=== PATIENT | male | born 1940 | race Caucasian/White ===

== ENCOUNTER 2019-07-05 18:12 | Emergency (ER) | payer MEDICARE ==
[~2019-07-05] VITALS: Ht 177.8 cm; Wt 79.0 kg
[~2019-07-05 18:12] MED LIST: ASCO100T4 PO; ASPI81TA50 PO; ATEN25TA PO; ATOR10TA PO; LISI10TA2 PO
[2019-07-05 18:33] LABS: BILIRUBIN,URINE NEGATIVE (NEG); CLARITY,URINE CLEAR; COLOR,URINE YELLOW; NITRITE,URINE NEGATIVE (NEG); PH,URINE 5.5 (<5.0-8.0); PROTEIN,URINE NEGATIVE (NEG-TRACE)
[2019-07-05 18:50] LABS: BACTERIA,URINE 0 /HPF (0-FEW); RBC,URINE 0 /HPF (0-2); WBC,URINE RARE /HPF (0-4)
[2019-07-05 19:00] VITALS: BP 164/74
--- NOTE | 2019-07-05 19:32 | RAD ---
CT ABDOMEN PELVIS WO CONTRAST INDICATION: Reason: urinary frequency / Spl. Instructions: / History: EXAM: Noncontrast CT of the abdomen and pelvis. Coronal and sagittal reformatted images were performed. PQRS compliance statement: One or more of the following individualized dose reduction techniques were utilized for this examination: 1. Automated exposure control 2. Adjustment of the mA and/or kV according to patient size 3. Use of iterative reconstruction technique COMPARISON: None FINDINGS: No free air, free fluid, or fluid collection. Lower chest: History of middle lobe calcified granulomas. Cardiomegaly. Coronary artery atherosclerotic disease. ABDOMEN: Liver: Hepatic steatosis. Gallbladder and biliary: Normal gallbladder without radiopaque stone. Normal caliber bile ducts. Spleen: Normal spleen. Pancreas: The noncontrast pancreas is homogeneous in attenuation without peripancreatic inflammatory changes. Adrenal glands: Normal adrenal glands. Kidneys and ureters: No opaque urinary calculi. Normal kidneys and ureters. GI tract: The stomach is decompressed and poorly evaluated. Normal caliber small bowel and colon. Normal appendix. Vascular structures: Diffuse aortoiliac atherosclerotic disease Lymph nodes: No lymphadenopathy in the abdomen or pelvis. PELVIS: Genitourinary system: Normal bladder. Enlarged prostate measures 5 cm transverse. SKELETAL STRUCTURES AND SOFT TISSUES: Degenerative changes of the spine. Partially visualized lesion in the left proximal femoral diaphysis with central lucency and foci of central mineralization and thick sclerotic margins/cortical thickening. No associated soft tissue mass is identified. IMPRESSION: 1. No opaque urinary calculi or hydronephrosis. 2. Prostatomegaly. 3. Partially visualized lesion in the left proximal femoral diaphysis with central lucency and foci of central mineralization and thick sclerotic margins/cortical thickening. No associated soft tissue mass is identified. This may represent a lesion such as a an enchondroma. Comparison with prior imaging would be helpful if available. Otherwise, 6-8 week follow-up radiographs are suggested. Electronically signed by: Jeramie Hendrix MD (07/05/2019 7:29 PM) [id number]
--- NOTE | 2019-07-05 19:49 | PHYS DOC ---
Past Medical History Past Medical History: CAD, High Cholesterol, Hypertension, [place] Past Surgical History: Other Additional Past Surgical Histo: balloon angioplasty Smoking Status: Former Smoker Alcohol Use: Heavy General Adult EDM: Chief Complaint: URINARY FREQUENCY HPI: HPI: Patient is a 79 year old male with history of MT, hypertension, high cholesterol who presents to the ED today complaining of urinary frequency for 4 days. Patient denies any fever, flank pain, nausea, vomiting, abdominal pain. He reports history of sciatica to the left. Review of Systems: Review of Systems: Constitutional: Denies fever or chills. [] Eyes: Denies change in visual acuity. [] HENT: Denies nasal congestion or sore throat. [] Respiratory: Denies cough or shortness of breath. [] Cardiovascular: Denies chest pain or edema. [] GI: Denies abdominal pain, nausea, vomiting, bloody stools or diarrhea. [] : Reports urinary frequency. Musculoskeletal: Denies back pain or joint pain. [] Integument: Denies rash. [] Neurologic: Denies headache, focal weakness or sensory changes. [] Psychiatric: Denies depression or anxiety. [] Heart Score: Risk Factors: Risk Factors: DM, Current or recent (<one month) smoker, HTN, HLP, family history of CAD, obesity. Risk Scores: Score 0 - 3: 2.5% MACE over next 6 weeks - Discharge Home Score 4 - 6: 20.3% MACE over next 6 weeks - Admit for Clinical Observation Score 7 - 10: 72.7% MACE over next 6 weeks - Early Invasive Strategies Allergies: Allergies: Allergies Coded Allergies Type Severity Reaction Last Updated Verified No Known Drug Allergies 06/14/14 No Physical Exam: PE: Constitutional: Well developed, well nourished, no acute distress, non-toxic appearance. [] HENT: Normocephalic, atraumatic, bilateral external ears normal, oropharynx moist, no oral exudates, nose normal. [] Eyes: PERRLA, EOMI, conjunctiva normal, no discharge. [] Neck: Normal range of motion, no tenderness, supple, no stridor. [] Cardiovascular:Heart rate regular rhythm, no murmur [] Lungs & Thorax: Bilateral breath sounds clear to auscultation [] Abdomen: Bowel sounds normal, soft, no tenderness, no masses, no pulsatile masses. [] Skin: Warm, dry, no erythema, no rash. [] Back: No tenderness, no CVA tenderness. [] Extremities: No tenderness, no cyanosis, no clubbing, ROM intact, no edema. [] Neurologic: Alert and oriented X 3, normal motor function, normal sensory function, no focal deficits noted. [] Psychologic: Affect normal, judgement normal, mood normal. [] Current Patient Data: Labs: Laboratory Tests Test 07/05/19 18:20 Urine Collection Type Void Urine Color Yellow Urine Clarity Clear Urine pH 5.5 (<5.0-8.0) Urine Specific [place] 1.015 (1.000-1.030) Urine Protein Negative mg/dL (NEG-TRACE) Urine Glucose (UA) Negative mg/dL (NEG) Urine Ketones (Stick) Negative mg/dL (NEG) Urine Blood Negative (NEG) Urine Nitrite Negative (NEG) Urine Bilirubin Negative (NEG) Urine Urobilinogen Dipstick 1.0 mg/dL (0.2 mg/dL) Urine Leukocyte Esterase Negative (NEG) Urine RBC 0 /HPF (0-2) Urine WBC Rare /HPF (0-4) Urine Squamous Epithelial Cells None /LPF Urine Bacteria 0 /HPF (0-FEW) Urine Mucus Slight /LPF Vital Signs: Vital Signs Date Time Temp Pulse Resp B/P (MAP) Pulse Ox O2 Delivery O2 Flow Rate FiO2 07/05/19 18:18 98.1 70 16 210/91 (130) 96 Room Air 98.1 EKG: EKG: [] Radiology/Procedures: Radiology/Procedures: []PROCEDURE: CT ABDOMEN PELVIS WO CONTRAST CT ABDOMEN PELVIS WO CONTRAST INDICATION: Reason: urinary frequency / Spl. Instructions: / History: EXAM: Noncontrast CT of the abdomen and pelvis. Coronal and sagittal reformatted images were performed. PQRS compliance statement: One or more of the following individualized dose reduction techniques were utilized for this examination: 1. Automated exposure control 2. Adjustment of the mA and/or kV according to patient size 3. Use of iterative reconstruction technique COMPARISON: None FINDINGS: No free air, free fluid, or fluid collection. Lower chest: History of middle lobe calcified granulomas. Cardiomegaly. Coronary artery atherosclerotic disease. ABDOMEN: Liver: Hepatic steatosis. Gallbladder and biliary: Normal gallbladder without radiopaque stone. Normal caliber bile ducts. Spleen: Normal spleen. Pancreas: The noncontrast pancreas is homogeneous in attenuation without peripancreatic inflammatory changes. Adrenal glands: Normal adrenal glands. Kidneys and ureters: No opaque urinary calculi. Normal kidneys and ureters. GI tract: The stomach is decompressed and poorly evaluated. Normal caliber small bowel and colon. Normal appendix. Vascular structures: Diffuse aortoiliac atherosclerotic disease Lymph nodes: No lymphadenopathy in the abdomen or pelvis. PELVIS: Genitourinary system: Normal bladder. Enlarged prostate measures 5 cm transverse. SKELETAL STRUCTURES AND SOFT TISSUES: Degenerative changes of the spine. Partially visualized lesion in the left proximal femoral diaphysis with central lucency and foci of central mineralization and thick sclerotic margins/cortical thickening. No associated soft tissue mass is identified. IMPRESSION: 1. No opaque urinary calculi or hydronephrosis. 2. Prostatomegaly. 3. Partially visualized lesion in the left proximal femoral diaphysis with central lucency and foci of central mineralization and thick sclerotic margins/cortical thickening. No associated soft tissue mass is identified. This may represent a lesion such as a an enchondroma. Comparison with prior imaging would be helpful if available. Otherwise, 6-8 week follow-up radiographs are suggested. Electronically signed by: Marylin Palacios MD (07/05/2019 7:29 PM) [id number] DICTATED and SIGNED BY: MARYLIN PALACIOS MD DATE: 07/05/191928 Course & Med Decision Making: Course & Med Decision Making Pertinent Labs and Imaging studies reviewed. (See chart for details) This is a 79-year-old male patient presenting to the ED today with urinary frequency for 4 days. Urine analysis negative for infection. Discussed with the patient possibility of getting labs to make sure his kidney function is okay. 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 He states his labs were already done 3 weeks ago and they were okay. Requested him to consider doing a CT of the abdomen and pelvic which he agreed to. CT noted for prostatomegaly. Also noted for Enchodroma of the left hip. Patient was started on Flomax, he reports he has MRI that his PCP is planning to order as an outpatient for sciatic pain. Requested him to follow-up with the PCP in the course of this week or next week. Wale Disclaimer: Wale Disclaimer: This electronic medical record was generated, in whole or in part, using a voice recognition dictation system. Departure Departure Impression: Primary Impression: BPH (benign prostatic hyperplasia) Qualified Codes: N40.1 - Benign prostatic hyperplasia with lower urinary tract symptoms; R35.0 - Frequency of micturition Additional Impression: Enchondroma of femur Qualified Codes: D16.22 - Benign neoplasm of long bones of left lower limb Disposition: HOME, SELF-CARE Condition: STABLE Referrals: MAURIZIO CHAPA MD (PCP) follow up in 1-2 weeks Patient Instructions: Benign Prostatic Hyperplasia Additional Instructions: Your CAT scan of the abdomen and pelvis was noted for enlarged prostate. Please follow-up with your primary care doctor for this, take the Flomax prescribed. You were also noted for Enchodroma of the left femur. Please follow up with your doctor for this. Scripts Tamsulosin Hcl (FLOMAX) 0.4 Mg Cap.er.24h 1 CAP PO DAILY, #14 CAP Prov: SASCHA SCOTT APRN 07/05/19 SASCHA SCOTT APRN July 05, 2019 19:49
[2019-07-05] MEDS ORDERED: TAMS0.4C97 PO (19:55)
[2019-07-05] MEDS ORDERED: TAMSULOSIN 0.4 MG CAP.ER.24H. PO ONE (20:00)
== END 2019-07-05 20:01 | disposition home or self-care (01) ==
LOC: ER 18:12
DX: N40.1 Benign prostatic hyperplasia with lower urinary tract symptoms (principal); R35.0 Frequency of micturition; D16.22 Benign neoplasm of long bones of left lower limb; E78.00 Pure hypercholesterolemia, unspecified; I10 Essential (primary) hypertension; I25.2 Old myocardial infarction; I25.10 Atherosclerotic heart disease of native coronary artery without angina pectoris; Z87.891 Personal history of nicotine dependence; F10.20 Alcohol dependence, uncomplicated; Y90.9 Presence of alcohol in blood, level not specified
CPT/HCPCS: 74176; 81001; 99284-25

== ENCOUNTER 2019-11-21 09:09 | Inpatient (IN) | payer MEDICARE ==
[~2019-11-21] VITALS: Ht 177.8 cm; Wt 78.5 kg
[~2019-11-21 09:09] MED LIST changes: +TAMS0.4C97 PO
[2019-11-21] MEDS ORDERED: ONDANSETRON PF 4 MG/2 ML VIAL. IVP ONE (09:30)
[2019-11-21] MEDS ORDERED: MORPHINE SULFATE 4 MG/ML VIAL. IV ONE ×3 (09:30→16:15)
[2019-11-21] MEDS ORDERED: TETANUS AND DIPHTHERIA TOX/PF 0.5 ML DISP.SYRIN. VAX IM ONE (09:30)
--- NOTE | 2019-11-21 09:37 | PHYS DOC ---
Past Medical History Past Medical History: CAD, High Cholesterol, Hypertension, [place] Past Surgical History: Other Additional Past Surgical Histo: balloon angioplasty Smoking Status: Former Smoker Alcohol Use: Heavy General Adult EDM: Chief Complaint: MECHANICAL FALL HPI: HPI: Patient is a 79 year old male who had a mechanical fall and landed on his left side just prior to arrival. Patient has chronic weakness in the left leg and he stumbled on the right landing on his left hip and elbow. Patient also hit his shoulder. Patient did not hit his head or have loss of consciousness. Patient complains primarily of left hip pain that is 10 out of 10 with movement and radiates down the leg when he moves. Pain is a stabbing pain and better with rest. Patient also complains of mild discomfort left elbow and moderate discomfort left shoulder. Review of Systems: Review of Systems: Constitutional: Denies fever or chills. [] Eyes: Denies change in visual acuity. [] HENT: Denies nasal congestion or sore throat. [] Respiratory: Denies cough or shortness of breath. [] Cardiovascular: Denies chest pain or edema. [] GI: Denies abdominal pain, nausea, vomiting, bloody stools or diarrhea. [] : Denies dysuria. [] Musculoskeletal: Denies back pain but has left elbow left shoulder and left hip pain Integument: Denies rash. [] Neurologic: Denies headache, focal weakness or sensory changes. [] Endocrine: Denies polyuria or polydipsia. [] Lymphatic: Denies swollen glands. [] Psychiatric: Denies depression or anxiety. [] Heart Score: Risk Factors: Risk Factors: DM, Current or recent (<one month) smoker, HTN, HLP, family history of CAD, obesity. Risk Scores: Score 0 - 3: 2.5% MACE over next 6 weeks - Discharge Home Score 4 - 6: 20.3% MACE over next 6 weeks - Admit for Clinical Observation Score 7 - 10: 72.7% MACE over next 6 weeks - Early Invasive Strategies Current Medications: Current Medications Medications (Trade) Dose Ordered Sig/Mindy Start Time Stop Time Status Last Admin Dose Admin Morphine Sulfate (Morphine Sulfate) 4 mg 1X ONCE 11/21/19 09:30 11/21/19 09:31 DC Ondansetron HCl (Zofran) 4 mg 1X ONCE 11/21/19 09:30 11/21/19 09:31 DC Tetanus/ Diphtheria Toxoids (Tenivac Syringe) 0.5 ml ONCE ONCE 11/21/19 09:30 11/21/19 09:31 DC Allergies: Allergies: Allergies Coded Allergies Type Severity Reaction Last Updated Verified No Known Drug Allergies 06/14/14 No Physical Exam: PE: Constitutional: Well developed, well nourished, no acute distress, non-toxic appearance. [] HENT: Normocephalic, atraumatic, bilateral external ears normal, no trismus, nose normal. [] Eyes: PERRLA, EOMI, conjunctiva normal, no discharge. [] Neck: Normal range of motion, no tenderness, supple, no stridor. [] Cardiovascular:Heart rate regular rhythm, peripheral pulses are intact cap refill is brisk Lungs & Thorax: Bilateral breath sounds clear, no respiratory distress Abdomen: , soft, no tenderness, no masses, no pulsatile masses. [] Skin: Warm, dry, no erythema, no rash. [] Skin tear to left elbow Back: No tenderness, no CVA tenderness. [] Extremities: Tenderness to left hip and into the groin limited range of motion due to pain neurovascular intact distally mild tenderness left elbow, neurovascular intact distally, tenderness to left shoulder, neurovascular intact distally Neurologic: Alert and oriented X 3, normal motor function, normal sensory function, no focal deficits noted. [] Psychologic: Affect normal, judgement normal, mood normal. [] Current Patient Data: Labs: Laboratory Tests Test 11/21/19 09:30 White Blood Count 4.3 x10^3/uL Red Blood Count 4.65 x10^6/uL Hemoglobin 14.7 g/dL Hematocrit 43.3 % Mean Corpuscular Volume 93 fL Mean Corpuscular Hemoglobin 32 pg Mean Corpuscular Hemoglobin Concent 34 g/dL Red Cell Distribution Width 13.4 % Platelet Count 158 x10^3/uL Neutrophils (%) (Auto) 68 % Lymphocytes (%) (Auto) 21 % Monocytes (%) (Auto) 9 % Eosinophils (%) (Auto) 1 % Basophils (%) (Auto) 1 % Neutrophils # (Auto) 3.0 x10^3/uL Lymphocytes # (Auto) 0.9 x10^3/uL Monocytes # (Auto) 0.4 x10^3/uL Eosinophils # (Auto) 0.0 x10^3/uL Basophils # (Auto) 0.0 x10^3/uL Prothrombin Time 13.6 SEC Prothromb Time International Ratio 1.1 Activated Partial Thromboplast Time 26 SEC Sodium Level 139 mmol/L Potassium Level 3.9 mmol/L Chloride Level 104 mmol/L Carbon Dioxide Level 28 mmol/L Anion Gap 7 Blood Urea Nitrogen 9 mg/dL Creatinine 0.9 mg/dL Estimated GFR (Cockcroft-Gault) 81.6 BUN/Creatinine Ratio 10 Glucose Level 136 mg/dL Calcium Level 8.8 mg/dL Total Bilirubin 1.3 mg/dL Aspartate Amino Transf (AST/SGOT) 32 U/L Alanine Aminotransferase (ALT/SGPT) 36 U/L Alkaline Phosphatase 58 U/L Total Protein 6.3 g/dL Albumin 3.7 g/dL Albumin/Globulin Ratio 1.4 Current Medications Medications (Trade) Dose Ordered Sig/Mindy Route PRN Reason Start Time Stop Time Status Last Admin Dose Admin Tetanus/ Diphtheria Toxoids (Tenivac Syringe) 0.5 ml ONCE ONCE VAX IM 11/21/19 09:30 11/21/19 09:31 DC Ondansetron HCl (Zofran) 4 mg 1X ONCE IVP 11/21/19 09:30 11/21/19 09:31 DC 11/21/19 09:43 Morphine Sulfate (Morphine Sulfate) 4 mg 1X ONCE IV 11/21/19 09:30 11/21/19 09:31 DC 11/21/19 09:43 Vital Signs: Vital Signs Date Time Temp Pulse Resp B/P (MAP) Pulse Ox O2 Delivery O2 Flow Rate FiO2 11/21/19 09:43 Room Air 11/21/19 09:10 97.8 78 14 98 97.8 EKG: EKG: [] EKG interpreted by me normal sinus rhythm with rate of 79 normal axis normal intervals normal ST segments, PVCs Radiology/Procedures: Radiology/Procedures: [][facility] [address] [place] [address] IMAGING REPORT Signed PATIENT: RADHA LAMBERT CACCOUNT: [id number] : 1940 LOCATION: ER AGE: 79 SEX: M EXAM STATUS: REG ER ORD. PHYSICIAN: MICKIE ORELLANA MD REASON: fall left leg pain PROCEDURE: HIP LEFT 2V WITH PELVIS Examination: 2 views of the left hip with frontal view the pelvis HISTORY: History of fall, left leg pain COMPARISON: None available FINDINGS: The bilateral femoral heads are within the acetabula. Moderate joint space loss identified in the hip joint likely degenerative changes. There is nondisplaced fracture of the left femoral neck. There is a sclerotic density identified in the proximal femur just distal to the intertrochanteric region measuring 5.1 cm could be a sclerotic lesion. IMPRESSION: 1. Nondisplaced fracture of the left femoral neck. 2. There is a sclerotic density identified in the proximal femur just distal to the intertrochanteric region measuring 5.1 cm could be a sclerotic lesion. Uncertain etiology. Could be enchondroma posterior osteoma or other sclerotic lesion. Recommend MRI follow-up. Electronically signed by: Vipul Johnson MD (11/21/2019 10:21 AM) [id number] DICTATED and SIGNED BY: VIUPL JOHNSON MD DATE: 11/21/[address] [place] [address] [address] [place], [place] [id number] IMAGING REPORT Signed PATIENT: RADHA LAMBERTCOUNT: [id number] : 1940 LOCATION: ER AGE: 79 SEX: M EXAM STATUS: REG ER ORD. PHYSICIAN: MICKIE ORELLANA MD REASON: fall left leg pain PROCEDURE: ELBOW LEFT 3V Examination: 3 views of the left shoulder and 3 views of the left elbow HISTORY: History of fall, pain COMPARISON: None available FINDINGS: The humerus head is within the glenoid. There is no acute fracture or dislocation identified. Mild joint space loss identified in the glenohumeral joint likely degenerative changes. The evaluation of the elbow joint for joint effusion is limited due to positioning. IMPRESSION: No acute osseous findings. Electronically signed by: Vipul Johnson MD (11/21/2019 10:28 AM) [id number] DICTATED and SIGNED BY: VIPUL JOHNSON MD DATE: 11/21/19 [id number] [place] [address] IMAGING REPORT Signed PATIENT: RADHA LAMBERTUNT: [id number] : 1940 LOCATION: ER AGE: 79 SEX: M EXAM STATUS: REG ER ORD. PHYSICIAN: MICKIE ORELLANA MD REASON: fall left leg pain PROCEDURE: PORTABLE CHEST 1V AP chest. HISTORY: Fall left leg pain AP view was taken of the chest. There is no pneumothorax or pleural effusion. Lungs are clear. Heart is normal in size. IMPRESSION: 1. No acute chest disease. Electronically signed by: Mina Mayorga MD (11/21/2019 10:36 AM) [id number] DICTATED and SIGNED BY: MINA MAYORGA MD DATE: 11/21/[address] [address] IMAGING REPORT Signed PATIENT: RADHA LAMBERTCOUNT: [id number] : 1940 LOCATION: ER AGE: 79 SEX: M EXAM STATUS: REG ER ORD. PHYSICIAN: MICKIE ORELLANA MD REASON: fall left leg pain PROCEDURE: SHOULDER 2+V LEFT Examination: 3 views of the left shoulder and 3 views of the left elbow HISTORY: History of fall, pain COMPARISON: None available FINDINGS: The humerus head is within the glenoid. There is no acute fracture or dislocation identified. Mild joint space loss identified in the glenohumeral joint likely degenerative changes. The evaluation of the elbow joint for joint effusion is limited due to positioning. IMPRESSION: No acute osseous findings. Electronically signed by: Vipul Johnson MD (11/21/2019 10:28 AM) [id number] DICTATED and SIGNED BY: VIPUL JOHNSON MD DATE: 11/21/19 1028 Course & Med Decision Making: Course & Med Decision Making Pertinent Labs and Imaging studies reviewed. (See chart for details) [] 79-year-old male with a mechanical fall and left hip fracture. Patient will be admitted to Dr. Chapa. Dr. Penn has been consulted Wale Disclaimer: Wale Disclaimer: This electronic medical record was generated, in whole or in part, using a voice recognition dictation system. Departure Departure Impression: Primary Impression: Fracture of femoral neck, left Additional Impression: Contusion of left shoulder Disposition: ADMITTED INPT THIS HOSP Admitting Physician: Maurizio Chapa Condition: STABLE Referrals: MAURIZIO CHAPA MD (PCP) MICKIE ORELLANA MD Nov 21, 2019 09:37
[2019-11-21 09:57] LABS: BASO % 1 % (0-3); EOS % 1 % (0-3); HEMATOCRIT 43.3 % (39.0-53.0); HEMOGLOBIN 14.7 g/dL (13.0-17.5); LYMPH # 0.9 x10^3/uL (1.0-4.8); LYMPH % 21 % (24-48); MEAN CORPUSCULAR HEMOGLOBIN 32 pg (25-35); MEAN CORPUSCULAR HGB CONC 34 g/dL (31-37); MEAN CORPUSCULAR VOLUME 93 fL (79-100); MONO # 0.4 x10^3/uL (0.0-1.1); MONO % 9 % (0-9); NEUT % 68 % (31-73); PLATELET COUNT 158 x10^3/uL (140-400); RED BLOOD COUNT 4.65 x10^6/uL (4.30-5.70); RED CELL DISTRIBUTION WIDTH 13.4 % (11.5-14.5); WHITE BLOOD COUNT 4.3 x10^3/uL (4.0-11.0)
[2019-11-21 10:06] LABS: PROTHROMBIN TIME PATIENT 13.6 SEC (11.7-14.0)
[2019-11-21 10:10] LABS: CALCIUM 8.8 mg/dL (8.5-10.1); CREATININE 0.9 mg/dL (0.7-1.3); GFR 81.6; POTASSIUM 3.9 mmol/L (3.5-5.1)
[2019-11-21 10:16] LABS: ALBUMIN 3.7 g/dL (3.4-5.0); ALBUMIN/GLOBULIN RATIO 1.4 (1.0-1.7); TOTAL BILIRUBIN 1.3 mg/dL (0.2-1.0); TOTAL PROTEIN 6.3 g/dL (6.4-8.2)
--- NOTE | 2019-11-21 10:24 | RAD ---
Examination: 2 views of the left hip with frontal view the pelvis HISTORY: History of fall, left leg pain COMPARISON: None available FINDINGS: The bilateral femoral heads are within the acetabula. Moderate joint space loss identified in the hip joint likely degenerative changes. There is nondisplaced fracture of the left femoral neck. There is a sclerotic density identified in the proximal femur just distal to the intertrochanteric region measuring 5.1 cm could be a sclerotic lesion. IMPRESSION: 1. Nondisplaced fracture of the left femoral neck. 2. There is a sclerotic density identified in the proximal femur just distal to the intertrochanteric region measuring 5.1 cm could be a sclerotic lesion. Uncertain etiology. Could be enchondroma posterior osteoma or other sclerotic lesion. Recommend MRI follow-up. Electronically signed by: Vipul Johnson MD (11/21/2019 10:21 AM) [id number]
--- NOTE | 2019-11-21 10:31 | RAD ---
Examination: 3 views of the left shoulder and 3 views of the left elbow HISTORY: History of fall, pain COMPARISON: None available FINDINGS: The humerus head is within the glenoid. There is no acute fracture or dislocation identified. Mild joint space loss identified in the glenohumeral joint likely degenerative changes. The evaluation of the elbow joint for joint effusion is limited due to positioning. IMPRESSION: No acute osseous findings. Electronically signed by: Vipul Johnson MD (11/21/2019 10:28 AM) [id number]
--- NOTE | 2019-11-21 10:39 | RAD ---
AP chest. HISTORY: Fall left leg pain AP view was taken of the chest. There is no pneumothorax or pleural effusion. Lungs are clear. Heart is normal in size. IMPRESSION: 1. No acute chest disease. Electronically signed by: Mina Mayorga MD (11/21/2019 10:36 AM) [id number]
[2019-11-21] MEDS ORDERED: ONDANSETRON PF 4 MG/2 ML VIAL. IV PRN (11:30)
[2019-11-21 14:30] VITALS: BP 150/59
--- NOTE | 2019-11-21 15:28 | EKG ---
[facility] [address] [place] [address] Test Date: 2019-11-21 Test Time: 09:33:34 Pat Name: RADHA LAMBERT Department: Room: Gender: M [employer]: : 1940 Requested By: MICKIE ORELLANA Order Number: [id number] Reading MD: Measurements Intervals [place] Rate: 79 P: 44 AL: 172 QRS: 38 QRSD: 102 T: 68 QT: 368 QTc: 428 Interpretive Statements SINUS RHYTHM VENTRICULAR PREMATURE COMPLEX(ES) ABNORMAL ECG RI6.02 No previous ECG available for comparison
[2019-11-21] MEDS ORDERED: MORPHINE SULFATE 4 MG/ML VIAL. ONE (16:10)
--- NOTE | 2019-11-21 18:09 | PDOC2 ---
CONSULT Date of Consult Date of Consult DATE: 11/21/19 TIME: 18:08 Reason for Consult Reason for Consult: Left hip fracture, and also a lesion in the left proximal femur. I am not engineering documentation specialist but it's a friend of my family and the patient and his family requested me personally. 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 Patient has history of weakness in the left leg and he stumbled on the right landing on his left hip and elbow. Patient also hit his shoulder. Patient did not hit his head or have loss of consciousness. Patient complains primarily of left hip pain that is 10 out of 10 with movement and radiates down the leg when he moves. Pain is a stabbing pain and better with rest. Patient also complains of mild discomfort left elbow and moderate discomfort left shoulder. He has been having trouble with left leg weakness for about 9 months. 9 months ago he fell off a barstool at [employer] and according to the patient at that time he landed so hard on his butt that he injured his sciatic nerve. He does have some low back pain and does have a history of right-sided lumbar surgery for sciatica. This left leg weakness has been treated for sciatic nerve injury outside of the lumbar spine. I am suspicious it is actually in the spine. In any case he had an MRI that which does show a lesion in the left femur. He also had an EMG of the lower extremity with Dr. Hollis. His primary care physician is Dr. Joiner. Past Medical History Past Medical History He had a heart attack when he was in his 40s. He had balloon angioplasty but no stent. Has been on antihypertensive medication since then. No cardiac surgery. Dr. Joiner is his PCP. He had lumbar spine surgery remotely, for right-sided sciatica. Does have some mild chronic low back pain. He has had 9 months of left leg weakness and occasionally the leg gives out and he has fallen several times. He had a cyst on his abdomen drained and packed by Dr. Joiner recently, which sounds like an skin abscess. Past Surgical History Past Surgical History Lumbar spine surgery. Broken bones. Social History Social History He lives with his and their dog. He does not use a cane or walker. He enjoys playing golf. His son Stephan Camp and [id number] [place] Camp and their kids attend alevism at [employer] where my family attends. Mr. Lambert is familiar with my in-laws the Hill family in [facility]. Quit ALCOHOL: other Lives: with Family Current Problem List Problem List Problems Medical Problems: (1) Contusion of left shoulder Status: Acute (2) Fracture of femoral neck, left Status: Acute Current Medications Current Medications Current Medications Tetanus/ Diphtheria Toxoids (Tenivac Syringe) 0.5 ml ONCE ONCE VAX IM ; Start 11/21/19 at 09:30; Stop 11/21/19 at 09:31; Status DC Ondansetron HCl (Zofran) 4 mg 1X ONCE IVP Last administered on 11/21/19at 09:43; Start 11/21/19 at 09:30; Stop 11/21/19 at 09:31; Status DC Morphine Sulfate (Morphine Sulfate) 4 mg 1X ONCE IV Last administered on 11/21/19at 09:43; Start 11/21/19 at 09:30; Stop 11/21/19 at 09:31; Status DC Ondansetron HCl (Zofran) 4 mg PRN Q8HRS PRN IV NAUSEA/VOMITING; Start 11/21/19 at 11:30; Stop 11/22/19 at 11:29 Morphine Sulfate (Morphine Sulfate) 4 mg 1X ONCE IV Last administered on 11/21/19at 11:59; Start 11/21/19 at 12:00; Stop 11/21/19 at 12:01; Status DC Morphine Sulfate (Morphine Sulfate) 4 mg 1X ONCE IV Last administered on 11/21/19at 16:15; Start 11/21/19 at 16:15; Stop 11/21/19 at 16:16; Status DC Morphine Sulfate (Morphine Sulfate) 4 mg STK-MED ONCE .ROUTE ; Start 11/21/19 at 16:10; Stop 11/21/19 at 16:11; Status DC Morphine Sulfate (Morphine Sulfate) 4 mg PRN Q3HRS PRN IV PAIN; Start 11/21/19 at 17:45 Active Scripts Active Flomax (Tamsulosin Hcl) 0.4 Mg Cap.er.24h 1 Cap PO DAILY Reported Vitamin C (Ascorbic Acid) 100 Mg Tablet 100 Mg PO Aspir-Low (Aspirin) 81 Mg Tablet. 1 Tab PO DAILY Lipitor (Atorvastatin Calcium) 10 Mg Tablet Unknown Dose PO HS Lisinopril 10 Mg Tablet Unknown Dose PO DAILY Atenolol 25 Mg Tablet Unknown Dose PO DAILY Allergies Allergies: Coded Allergies: No Known Drug Allergies (Unverified , 06/14/14) ROS General: No: Chills, Night Sweats Eyes: No Decreased vision Hematological and Lymphatic: No: Bleeding Problems, Blood Clots Respiratory: No: Cough, Shortness of breath, SOB with excertion Cardiovascular: No Chest Pain Gastrointestinal: No Nausea, No Vomiting, No Diarrhea, No Constipation Genitourinary: No Hematuria Musculoskeletal: Yes Gait Disturbance, Yes Joint Pain, Yes Muscular Weakness Neurological: Yes Gait Disturbance, Yes Impaired Coord/balance Physical Exam General: Alert, Cooperative HEENT: Atraumatic Lungs: Normal air movement Heart: Regular rate Abdomen: Soft Extremities: Other (There is tenderness of the left hip. There is pain with any attempted motion. The skin is intact without ecchymosis. The extremity is shortened and externally rotated. Light touch sensation is intact at the foot and toes. Capillary refill and pulses are intact without evidence of ischemia. Slight dorsiflexion and plantarflexion are possible without distinct evidence of sciatic nerve injury despite the report of weakness. Slight left leg weakness would be nearly impossible to detect in the setting of a left hip fracture.) Skin: No rashes, No breakdown, Other (healed abdominal cyst wound) Neuro: Normal speech, Sensation intact Psych/Mental Status: Mental status NL, Mood NL MUSCULOSKELETAL: Abnormal exam of left (hip as above) Vitals VITALS Vital Signs Date Time Temp Pulse Resp B/P (MAP) Pulse Ox O2 Delivery O2 Flow Rate FiO2 11/21/19 16:15 95 Room Air 11/21/19 16:10 86 17 11/21/19 14:30 98.1 150/59 (89) 98.1 Labs Labs Laboratory Tests Test 11/21/19 09:30 11/21/19 10:45 White Blood Count 4.3 x10^3/uL (4.0-11.0) Red Blood Count 4.65 x10^6/uL (4.30-5.70) Hemoglobin 14.7 g/dL (13.0-17.5) Hematocrit 43.3 % (39.0-53.0) Mean Corpuscular Volume 93 fL (79-100) Mean Corpuscular Hemoglobin 32 pg (25-35) Mean Corpuscular Hemoglobin Concent 34 g/dL (31-37) Red Cell Distribution Width 13.4 % (11.5-14.5) Platelet Count 158 x10^3/uL (140-400) Neutrophils (%) (Auto) 68 % (31-73) Lymphocytes (%) (Auto) 21 % (24-48) Monocytes (%) (Auto) 9 % (0-9) Eosinophils (%) (Auto) 1 % (0-3) Basophils (%) (Auto) 1 % (0-3) Neutrophils # (Auto) 3.0 x10^3/uL (1.8-7.7) Lymphocytes # (Auto) 0.9 x10^3/uL (1.0-4.8) Monocytes # (Auto) 0.4 x10^3/uL (0.0-1.1) Eosinophils # (Auto) 0.0 x10^3/uL (0.0-0.7) Basophils # (Auto) 0.0 x10^3/uL (0.0-0.2) Prothrombin Time 13.6 SEC (11.7-14.0) Prothromb Time International Ratio 1.1 (0.8-1.1) Activated Partial Thromboplast Time 26 SEC (24-38) Sodium Level 139 mmol/L (136-145) Potassium Level 3.9 mmol/L (3.5-5.1) Chloride Level 104 mmol/L (98-107) Carbon Dioxide Level 28 mmol/L (21-32) Anion Gap 7 (6-14) Blood Urea Nitrogen 9 mg/dL (8-26) Creatinine 0.9 mg/dL (0.7-1.3) Estimated GFR (Cockcroft-Gault) 81.6 BUN/Creatinine Ratio 10 (6-20) Glucose Level 136 mg/dL (70-99) Calcium Level 8.8 mg/dL (8.5-10.1) Total Bilirubin 1.3 mg/dL (0.2-1.0) Aspartate Amino Transf (AST/SGOT) 32 U/L (15-37) Alanine Aminotransferase (ALT/SGPT) 36 U/L (16-63) Alkaline Phosphatase 58 U/L (46-116) Total Protein 6.3 g/dL (6.4-8.2) Albumin 3.7 g/dL (3.4-5.0) Albumin/Globulin Ratio 1.4 (1.0-1.7) SARS-CoV-2 Antigen (Rapid) Negative (NEGATIVE) Laboratory Tests Test 11/21/19 09:30 11/21/19 10:45 White Blood Count 4.3 x10^3/uL (4.0-11.0) Red Blood Count 4.65 x10^6/uL (4.30-5.70) Hemoglobin 14.7 g/dL (13.0-17.5) Hematocrit 43.3 % (39.0-53.0) Mean Corpuscular Volume 93 fL (79-100) Mean Corpuscular Hemoglobin 32 pg (25-35) Mean Corpuscular Hemoglobin Concent 34 g/dL (31-37) Red Cell Distribution Width 13.4 % (11.5-14.5) Platelet Count 158 x10^3/uL (140-400) Neutrophils (%) (Auto) 68 % (31-73) Lymphocytes (%) (Auto) 21 % (24-48) Monocytes (%) (Auto) 9 % (0-9) Eosinophils (%) (Auto) 1 % (0-3) Basophils (%) (Auto) 1 % (0-3) Neutrophils # (Auto) 3.0 x10^3/uL (1.8-7.7) Lymphocytes # (Auto) 0.9 x10^3/uL (1.0-4.8) Monocytes # (Auto) 0.4 x10^3/uL (0.0-1.1) Eosinophils # (Auto) 0.0 x10^3/uL (0.0-0.7) Basophils # (Auto) 0.0 x10^3/uL (0.0-0.2) Prothrombin Time 13.6 SEC (11.7-14.0) Prothromb Time International Ratio 1.1 (0.8-1.1) Activated Partial Thromboplast Time 26 SEC (24-38) Sodium Level 139 mmol/L (136-145) Potassium Level 3.9 mmol/L (3.5-5.1) Chloride Level 104 mmol/L (98-107) Carbon Dioxide Level 28 mmol/L (21-32) Anion Gap 7 (6-14) Blood Urea Nitrogen 9 mg/dL (8-26) Creatinine 0.9 mg/dL (0.7-1.3) Estimated GFR (Cockcroft-Gault) 81.6 BUN/Creatinine Ratio 10 (6-20) Glucose Level 136 mg/dL (70-99) Calcium Level 8.8 mg/dL (8.5-10.1) Total Bilirubin 1.3 mg/dL (0.2-1.0) Aspartate Amino Transf (AST/SGOT) 32 U/L (15-37) Alanine Aminotransferase (ALT/SGPT) 36 U/L (16-63) Alkaline Phosphatase 58 U/L (46-116) Total Protein 6.3 g/dL (6.4-8.2) Albumin 3.7 g/dL (3.4-5.0) Albumin/Globulin Ratio 1.4 (1.0-1.7) SARS-CoV-2 Antigen (Rapid) Negative (NEGATIVE) Images Images Report reviewed and images independently reviewed. There is a left hip femoral neck fracture which is complete and translated a few millimeters at the medial neck, so it is a displaced fracture. There is also a neoplasm of some type in the left proximal femur. This is a common area for metastatic disease but there is no history of malignancy. I think the lesion could be benign as there does not seem to be any dramatic bone loss. MRI would be helpful for characterization before surgery because surgery will likely involve this location, such as reaming for a hemiarthroplasty. The patient already had an MRI, and I reviewed that report and those images. [facility] [address] [place] [address] IMAGING REPORT Signed PATIENT: RADHA LAMBERT ACCOUNT: [id number] : 1940 LOCATION: ER AGE: 79 SEX: M EXAM STATUS: REG ER ORD. PHYSICIAN: MICKIE ORELLANA MD REASON: fall left leg pain PROCEDURE: HIP LEFT 2V WITH PELVIS Examination: 2 views of the left hip with frontal view the pelvis HISTORY: History of fall, left leg pain COMPARISON: None available FINDINGS: The bilateral femoral heads are within the acetabula. Moderate joint space loss identified in the hip joint likely degenerative changes. There is nondisplaced fracture of the left femoral neck. There is a sclerotic density identified in the proximal femur just distal to the intertrochanteric region measuring 5.1 cm could be a sclerotic lesion. IMPRESSION: 1. Nondisplaced fracture of the left femoral neck. 2. There is a sclerotic density identified in the proximal femur just distal to the intertrochanteric region measuring 5.1 cm could be a sclerotic lesion. Uncertain etiology. Could be enchondroma posterior osteoma or other sclerotic lesion. Recommend MRI follow-up. Electronically signed by: Vipul Johnson MD (11/21/2019 10:21 AM) [id number] DICTATED and SIGNED BY: VIPUL JOHNSON MD DATE: 11/21/19 1021 Report reviewed and images independently reviewed of the MRI. This does appear benign. Some of the characteristics look like an enchondroma but there is more sclerosis. 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 Referring Physician: JESI ETIENNE Patient Name: RADHA LAMBERT Date of : 1940 Sex: Male Report Author: ABRAHAM DOWNS MD Report Date: 2019-11-13 Report Status: Finalized Findings VENICE HAWK DATE: 11/13/2019 09:00 AM [address] [place] [address] [facility] LOCATION: [facility] NAME: RADHA LAMBERT : 1940 ACC: [id number] MRI LEFT FEMUR WITHOUT AND WITH CONTRAST: TECHNIQUE: 0.3T MR: Multiplanar/multisequence pre/post contrast femur protocol. CONTRAST: 7.5 cc of Gadavist was administered intravenously, 0 cc of the contrast vial was discarded. INDICATION: Left hip and leg pain for 8 months. Follow-up lesion seen on x-ray. COMPARISON: Left hip radiographs 10/27/2019 FINDINGS: OSSEOUS/ARTICULAR: No subtrochanteric left femur, there is a heterogeneous intramedullary lesion measuring 3.3 x 2.7 x 4.6 cm. There is no endosteal scalloping. The lesion has areas of marked low signal intensity, some fat signal intensity and some probable proteinaceous fluid intensity. No adjacent edema. No osseous destructive changes. Patchy low-grade enhancement. SOFT TISSUES: Regional muscles and tendons are unremarkable. IMPRESSION: Heterogeneous lesion in the subtrochanteric left femur with areas of fat, sclerosis and probable proteinaceous fluid. 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 Consider consult with orthopedic surgery. 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 Lambert and I and the patient's son discussed the risks benefits and alternatives of a cemented bipolar arthroplasty. 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 We discussed the unlikely chance that a more aggressive tumor could be diagnosed based on the biopsy. The advantages of surgery are early range of motion and better pain control. Generally the patient can be up fully weightbearing as tolerated on the first postoperative day. The risks include risks of dislocation, infection, blood clots, leg length discrepancy, neurovascular injury particularly to the sciatic nerve causing a foot drop, and other potential surgical or anesthetic complications. The alternatives of surgery are bedrest for treatment which is generally not well tolerated due to the high risks of bedsores, pneumonia, blood clots, and frequently with nonoperative treatment for hip fractures. They stated understanding of the risks benefits and alternatives and desire to proceed with surgery. Surgery scheduled for 7:30 AM. STEPHAN CIFUENTES MD Nov 21, 2019 18:09
[2019-11-21] MEDS ORDERED: INFLUENZA VAX SCREEN BY RX. MC ONE (18:45)
[2019-11-21 19:00] VITALS: BP 129/59
[2019-11-21] MEDS ORDERED: oxyCODONE/APAP 5/325 1 TAB TABLET PO PRN ×2 (20:00→20:30)
[2019-11-21] MEDS ORDERED: ZOLPIDEM 5 MG TABLET. PO PRN (20:00)
[2019-11-21] MEDS ORDERED: 0.9 % SODIUM CHLORIDE 10 ML DISP.SYRIN. IV PRN (20:00)
[2019-11-21] MEDS ORDERED: DEXTROSE 50% 25 GM / 50ML DISP.SYRIN. IV PRN (20:00)
[2019-11-21] MEDS ORDERED: ONDANSETRON PF 4 MG/2 ML VIAL. IVP PRN (20:00)
[2019-11-21 22:17] LABS: BASO % 0 % (0-3); EOS % 0 % (0-3); HEMATOCRIT 41.2 % (39.0-53.0); HEMOGLOBIN 14.1 g/dL (13.0-17.5); LYMPH # 0.8 x10^3/uL (1.0-4.8); LYMPH % 10 % (24-48); MEAN CORPUSCULAR HEMOGLOBIN 32 pg (25-35); MEAN CORPUSCULAR HGB CONC 34 g/dL (31-37); MEAN CORPUSCULAR VOLUME 93 fL (79-100); MONO # 0.8 x10^3/uL (0.0-1.1); MONO % 11 % (0-9); NEUT # 5.8 x10^3/uL (1.8-7.7); NEUT % 78 % (31-73); PLATELET COUNT 145 x10^3/uL (140-400); RED BLOOD COUNT 4.41 x10^6/uL (4.30-5.70); RED CELL DISTRIBUTION WIDTH 13.6 % (11.5-14.5); WHITE BLOOD COUNT 7.4 x10^3/uL (4.0-11.0)
[2019-11-21 22:24] LABS: PROTHROMBIN TIME PATIENT 14.8 SEC (11.7-14.0)
[2019-11-21 22:26] LABS: CALCIUM 8.3 mg/dL (8.5-10.1); GFR 72.3; POTASSIUM 4.1 mmol/L (3.5-5.1)
[2019-11-21 23:00] VITALS: BP 117/60
[2019-11-22] VITALS (9 sets, daily range): BP systolic 81–125; BP diastolic 41–67
[2019-11-22] MEDS: MORPHINE SULFATE 4 MG/ML VIAL. IV PRN ×2 (01:36→06:18)
[2019-11-22] MEDS ORDERED: [UNRECOGNIZED DRUG - REMARK] INT ART ONE (06:00)
[2019-11-22] MEDS ORDERED: PROPOFOL 10 MG/ML (20ML) VIAL. IV ONE (06:37)
[2019-11-22] MEDS ORDERED: LIDOCAINE 2% PF 5 ML VIAL. ONE (06:37)
[2019-11-22] MEDS ORDERED: ONDANSETRON PF 4 MG/2 ML VIAL. ONE (06:38)
[2019-11-22] MEDS ORDERED: DEXAMETHASONE SOD PHOS 4 MG/ML VIAL ONE (06:38)
[2019-11-22] MEDS ORDERED: ROCURONIUM 50 MG/5 ML VIAL. ONE (06:40)
[2019-11-22] MEDS ORDERED: fentaNYL PF VIAL 100 MCG/2 ML VIAL IV PRN (07:00)
[2019-11-22] MEDS ORDERED: PROCHLORPERAZINE 10 MG/2 ML VIAL. IV PRN (07:00)
[2019-11-22] MEDS ORDERED: MORPHINE SULFATE 2 MG/ML VIAL. IV PRN (07:00)
[2019-11-22] MEDS ORDERED: ONDANSETRON PF 4 MG/2 ML VIAL. IV PRN (07:00)
[2019-11-22] MEDS ORDERED: HYDROmorphone 2 MG/ML VIAL IV PRN (07:00)
[2019-11-22] MEDS ORDERED: LIDOCAINE 1% PF 2 ML VIAL. ID PRN (07:00)
[2019-11-22] MEDS ORDERED: IV RINGERS,LACTATED 1000ML 1,000 ML IV SCH (07:00)
[2019-11-22] MEDS ORDERED: fentaNYL PF VIAL 100 MCG/2 ML VIAL ONE ×3 (07:14→10:38)
[2019-11-22] MEDS ORDERED: TOBRAMYCIN POWDER 1.2 GM VIAL. ONE (07:19)
[2019-11-22] MEDS ORDERED: VANCOMYCIN 1 GM VIAL. ONE ×2 (07:19)
[2019-11-22] MEDS ORDERED: TRANEXAMIC ACID 1,000 MG in IV NORMAL SALINE 50ML 50 ML INJ ONE (08:00)
[2019-11-22] MEDS ORDERED: PHENYLEPHRINE in 0.9% NACL PF 1 MG/10 ML SYRINGE. IV ONE (08:11)
[2019-11-22] MEDS ORDERED: NEOSTIGMINE METHYLSULFATE 5 MG/5 ML SYRINGE. ONE (08:22)
[2019-11-22] MEDS ORDERED: GLYCOPYRROLATE 1 MG/5 ML VIAL. ONE (08:23)
[2019-11-22] MEDS ORDERED: ERGOCALCIFEROL (VITAMIN D2) 50,000 UNIT CAPSULE. PO SCH (09:00)
--- NOTE | 2019-11-22 09:33 | HP ---
ADMIT DATE: 11/21/2019 CHIEF COMPLAINT: Fall. HISTORY OF PRESENT ILLNESS: This is a 79-year-old healthy white male who had a fall and has a femoral neck fracture and is in surgery at this time. He has had no other recent problems except for some weakness in the left leg, which has been evaluated, no definitive diagnosis has been made. PAST HISTORY: Listed per the chart. MEDICATIONS: Listed per the chart. ALLERGIES: No allergies. IMMUNIZATIONS: Up-to-date. SOCIAL HISTORY: Nonsmoker, physically active, . FAMILY HISTORY: Unremarkable. REVIEW OF SYSTEMS: No other complaints. OBJECTIVE: ENT: Unremarkable. NECK: No masses, nodes, or bruits. LUNGS: Clear. CARDIOVASCULAR: Regular rate. No murmur. EXTREMITIES: Left leg is shortened and externally rotated. Good pulses. NEUROLOGIC: Physiologic. ASSESSMENT: Femoral neck fracture after a fall. PLAN: As ordered. MAURIZIO CHAPA MD DR: BILL/jaycee JOB#: [id number] / [id number]
[2019-11-22] MEDS ORDERED: ePHEDrine PF IN SALINE 50 MG/10 ML SYRINGE. IV ONE (09:58)
[2019-11-22] MEDS: fentaNYL PF VIAL 100 MCG/2 ML VIAL IV PRN ×2 (10:42→11:02)
[2019-11-22] MEDS ORDERED: DEXTROSE 50% 25 GM / 50ML DISP.SYRIN. IV PRN (11:45)
[2019-11-22] MEDS ORDERED: ONDANSETRON PF 4 MG/2 ML VIAL. IVP PRN (11:45)
[2019-11-22] MEDS ORDERED: oxyCODONE/APAP 5/325 1 TAB TABLET PO PRN (11:45)
[2019-11-22] MEDS ORDERED: oxyCODONE IR 5 MG TABLET PO PRN (11:45)
[2019-11-22] MEDS ORDERED: MORPHINE SULFATE 4 MG/ML VIAL. IVP PRN (11:45)
[2019-11-22] MEDS ORDERED: POLYETHYLENE GLYCOL 3350 17 GM PACKET. PO PRN (11:45)
[2019-11-22] MEDS ORDERED: fentaNYL PF VIAL 100 MCG/2 ML VIAL IVP PRN (11:45)
[2019-11-22] MEDS: LISINOPRIL 10 MG TABLET PO SCH (12:29)
[2019-11-22] MEDS: ATENOLOL 25 MG TABLET. PO SCH (12:29)
[2019-11-22] MEDS: TAMSULOSIN 0.4 MG CAP.ER.24H. PO SCH (12:29)
[2019-11-22] MEDS: oxyCODONE/APAP 5/325 1 TAB TABLET PO PRN (17:56)
[2019-11-22] MEDS ORDERED: FLU VACC QS 2020-21(6MOS+)/PF 0.5 ML SYRINGE. VAX IM ONE (18:00)
[2019-11-22] MEDS: ATORVASTATIN CALCIUM 10 MG TABLET. PO SCH (21:14)
[2019-11-22] MEDS: IV 1/2 NORMAL SALINE 1,000 ML IV SCH (22:54)
[2019-11-23 00:08] LABS: HEMOGLOBIN A1C 5.4 % (4.8-5.6)
[2019-11-23 00:38] VITALS: BP 99/50
[2019-11-23] MEDS: MORPHINE SULFATE 2 MG/ML VIAL. IVP PRN ×4 (01:11→17:44)
[2019-11-23] MEDS: IV 1/2 NORMAL SALINE 1,000 ML IV SCH ×2 (01:20→17:10)
--- NOTE | 2019-11-23 01:52 | NUR ---
bladder scanned 170ml
[2019-11-23 03:00] VITALS: BP 91/47
[2019-11-23] MEDS ORDERED: [UNRECOGNIZED DRUG - REMARK] INT ART ONE (06:00)
[2019-11-23] MEDS ORDERED: EPINEPHRINE IRR ONE (06:00)
[2019-11-23] MEDS ORDERED: NORMAL SALINE IRR ONE (06:00)
[2019-11-23] MEDS ORDERED: MAGNESIUM HYDROXIDE 2,400 MG/30 ML ORAL.SUSP. PO PRN (06:00)
[2019-11-23] MEDS ORDERED: MORPHINE SULFATE 2 MG/ML VIAL. IVP PRN ×2 (06:30→16:15)
[2019-11-23] MEDS ORDERED: HYDROmorphone 2 MG/ML VIAL IVP PRN (06:30)
[2019-11-23] MEDS ORDERED: fentaNYL PF VIAL 100 MCG/2 ML VIAL IVP PRN ×2 (06:30→16:15)
[2019-11-23] MEDS ORDERED: ONDANSETRON PF 4 MG/2 ML VIAL. IVP PRN ×2 (06:30→16:15)
[2019-11-23] MEDS ORDERED: PROCHLORPERAZINE 10 MG/2 ML VIAL. IVP PRN (06:30)
[2019-11-23] MEDS ORDERED: IV RINGERS,LACTATED 1000ML 1,000 ML IV SCH ×2 (06:30→07:00)
[2019-11-23] MEDS ORDERED: LIDOCAINE 1% PF 2 ML VIAL. ID PRN ×2 (06:30→07:00)
[2019-11-23 07:00] VITALS: BP 94/43
[2019-11-23] MEDS ORDERED: PROCHLORPERAZINE 10 MG/2 ML VIAL. IV PRN (07:00)
[2019-11-23] MEDS ORDERED: MORPHINE SULFATE 2 MG/ML VIAL. IV PRN (07:00)
[2019-11-23] MEDS ORDERED: ONDANSETRON PF 4 MG/2 ML VIAL. IV PRN (07:00)
[2019-11-23] MEDS ORDERED: fentaNYL PF VIAL 100 MCG/2 ML VIAL IV PRN ×2 (07:00)
[2019-11-23] MEDS ORDERED: HYDROmorphone 2 MG/ML VIAL IV PRN (07:00)
[2019-11-23] MEDS: SENNOSIDES/DOCUSATE 8.6/50MG TABLET. PO SCH ×2 (07:21→09:00)
[2019-11-23] MEDS: ATENOLOL 25 MG TABLET. PO SCH (07:21)
[2019-11-23] MEDS: TAMSULOSIN 0.4 MG CAP.ER.24H. PO SCH ×2 (07:21→09:00)
[2019-11-23] MEDS: LISINOPRIL 10 MG TABLET PO SCH (07:21)
[2019-11-23] MEDS: MULTIVITAMIN with MINERAL TABLET. PO SCH ×2 (07:22→09:00)
--- NOTE | 2019-11-23 08:24 | PDOC ---
Provider Note Date of Service: DATE: 11/23/19 TIME: 08:23 Provider Note labs all good but low D level, 50 K weekly added, will follow post op Justifications for Admission Other Justification MAURIZIO CHAPA MD Nov 23, 2019 08:24
[2019-11-23] MEDS ORDERED: NEOSTIGMINE METHYLSULFATE 5 MG/5 ML SYRINGE. ONE (08:36)
[2019-11-23] MEDS ORDERED: ROCURONIUM 50 MG/5 ML VIAL. ONE ×2 (08:36→14:18)
[2019-11-23] MEDS ORDERED: fentaNYL PF VIAL 100 MCG/2 ML VIAL ONE ×3 (08:36→16:11)
[2019-11-23] MEDS ORDERED: PROPOFOL 10 MG/ML (20ML) VIAL. IV ONE (08:37)
[2019-11-23] MEDS ORDERED: LIDOCAINE 2% PF 5 ML VIAL. ONE (08:37)
[2019-11-23] MEDS ORDERED: DEXAMETHASONE SOD PHOS 4 MG/ML VIAL ONE (08:37)
[2019-11-23] MEDS ORDERED: ONDANSETRON PF 4 MG/2 ML VIAL. ONE (08:37)
[2019-11-23] MEDS ORDERED: VANCOMYCIN 1 GM VIAL. ONE ×2 (10:16→10:17)
[2019-11-23] MEDS ORDERED: TOBRAMYCIN POWDER 1.2 GM VIAL. ONE (10:17)
[2019-11-23] MEDS ORDERED: BUPIVACAINE MPF 0.25% 30 ML VIAL. ONE (12:12)
[2019-11-23] MEDS ORDERED: methylPREDNISolone ACETATE 40 MG/ML VIAL. ONE (12:12)
[2019-11-23] MEDS ORDERED: TRANEXAMIC ACID 1,000 MG in IV NORMAL SALINE 50ML 50 ML INJ ONE (12:30)
[2019-11-23] MEDS ORDERED: ePHEDrine PF IN SALINE 50 MG/10 ML SYRINGE. IV ONE (13:47)
[2019-11-23] MEDS ORDERED: PHENYLEPHRINE in 0.9% NACL PF 1 MG/10 ML SYRINGE. IV ONE (13:47)
[2019-11-23] MEDS ORDERED: PHENYLEPHRINE 10 MG/ML VIAL. ONE (14:18)
[2019-11-23] MEDS ORDERED: SEVOFLURANE 61 TO 120 MINUTES. IH ONE (14:24)
[2019-11-23] MEDS ORDERED: ceFAZolin SODIUM IV Push 1 GM VIAL. IVP ONE (14:24)
[2019-11-23] MEDS ORDERED: ALBUMIN HUMAN 5% 500 ML IV ONE ×2 (15:51→15:55)
[2019-11-23] MEDS ORDERED: BISACODYL 10 MG SUPP.RECT. PR PRN (16:00)
[2019-11-23] MEDS ORDERED: IV 1/2 NORMAL SALINE 1,000 ML IV SCH (16:12)
--- NOTE | 2019-11-23 16:12 | PDOC4 ---
Operative Note Operative Note Date of Procedure: November 23, 2019 Pre-Op Diagnosis: 1. Displaced mid cervical fracture of left femur, initial encounter for closed fracture S72.032A 2. Pain in left shoulder M25.512 Post-Op Diagnosis: same Procedure: 1. left hip open treatment of femoral fracture, proximal end, neck, prosthetic replacement, with allograft CPT 41937 2. left shoulder joint corticosteroid injection CPT 69227 Anesthesia Type: General Surgeon: Stephan Lewis MD Shoe Repairer Helper: BRENDAN Howard, MIL Ambrocio EBL: 500 mL Specimens Obtained: none Complications: None Drains: None Implants: Sams [employer] Nephew Redapt femoral standard offset size sixteen 300 mm length sleeved stem revision femoral component Sams [employer]hew Redapt femoral size 1617 modular sleeve extra small grit blasted [employer] Nephew tandem 28 mm inner diameter 52 mm outer diameter cobalt chrome shell/ultrahigh molecular weight polyethylene liner bipolar Sams [employer] Nephew cobalt chrome 28 mm outer diameter, -3 mm, 12/14 taper femoral head cobalt chrome Arthrex TigerTape cerclage suture 2 mm (x6 devices) [facility] cortical/cancellous strut. INDICATION FOR PROCEDURE: This patient is a 79-year-old man with a displaced left hip femoral neck fracture. 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 I had plan to complete the surgery yesterday with both excision of the tumor and placement of the bipolar arthroplasty, however the tumor was more difficult to remove than I had anticipated, and long revision stem components will be needed for this patient's fracture. The specialized implants and equipment needed to be ordered in, and was unavailable yesterday. Staged surgeries were done, with tumor removal yeste rday, and I will perform the arthroplasty today. The patient and I previously and again discussed risks of bipolar arthroplasty including limb length discrepancy, dislocation, neurovascular injury particularly the sciatic nerve, bleeding, blood clots, infection, need for additional surgeries, or other potential surgical or anesthetic complications. All of his questions about surg sherrell were answered and he desires to proceed. PROCEDURE IN DETAIL: The patient was identified in the preoperative holding area. The correct left hip was marked by me. The patient was taken to the operating room where a general anesthetic was used. Preoperative antibiotics were given intravenously. The patient was positioned laterally using a Stulberg hip positioner and the bony prominences of the nonoperative leg were well padded. A time-out procedure was performed. The left shoulder was prepared with chlorhexidine, and then under sterile technique I injected 40 mg of Depo-Medrol and 2 mL of 0.25% bupivacaine into the left shoulder joint bursa. All of the operating team wore the personal ventilated exhaust scrub suits. The left hip and limb were thoroughly washed with ChloraPrep solution, dried, and the shauna were removed. The skin was then prepared with Betadine solution using sterile technique. Sterile draping was performed, using a sterile Ioban hip drape and an impervious stockinette such that the skin was entirely covered. A posterior approach to the left hip was used. Sharp dissection was used. Prior sutures were removed. Bovie electrocautery was used for hemostasis. Gelpi retractors were placed. Sharp dissection was used and the fascia was exposed. The fascia sutures were removed and then a Charnley retractor was placed. The Charnley retractor was placed in a manner to protect the sciatic nerve with the short external rotators. The acetabulum was cleared of bony fragments. The previous traction sutures were removed, and were used as markers, and new #2 Ethibond traction sutures were placed. Betadine lavage was used throughout the hip and femur, including down the intramedullary canal. Cerclage devices were placed at the femur below the level of the bone loss and fracture, onto an intact area of the femoral cortex. I placed two of the Arthrex TigerTape cerclage devices, to help protect the femoral cortex during reaming and bone preparation. These tension to 60 N with a tensioner, and sutures tied to complete the cerclage security. Next intramedullary reaming was performed. 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 This tumor is the most dense I have ever encountered in 25 years of orthopedic surgery, it is like a rock. It is so dense that even the normal intramedullary reamer was being pushed away from the tumor and could not excise or remove the tumor. The reamer was being forcibly diverted into a varus alignment, and I needed to resect more of the tumor before I could ream the intramedullary canal properly. I used an arthroscopic bur, and direct visualization, and I excised the remaining tumor which was along the lateral intramedullary cortex. Once I had completely excised the remaining dense tumor, I could proceed with the reaming in the usual fashion and without difficulty. The cortex distally was protected by the cerclage devices. An intraoperative x-ray was used to confirm placement in the intramedullary canal. The x-ray was taken with a [address], and after I visualized the x-ray I reamed an additional 2 mm up to 16 mm. The x-ray was interpreted intraoperatively by me. The 16mm reamer was left in place, and the proximal reaming was performed with a cannulated reamer over the first reamer shaft. This will allow placement of a modular grit-blasted sleeve, to improve the healing of the bone graft at this upper area where there is medial bone loss. A standard offset neck was chosen, and the 52 mm unipolar device was used for the trial reduction. The hip was reduced by my technical administrative assistant Mr. Zhao while I held traction on the Ethibond sutures. The hip reduction was nice and stable, but fairly tight with a 0 mm head, and I chose the -3 head neck combination for anatomic tension and length. The trial components were removed. Outer gloves were changed. Antibiotics were redosed. Betadine lavage was used again. Copious irrigation was performed with saline, and the Del InterPulse truck repair supervisor. The final implants were opened. The more superior of the cerclage devices had slipped into the previous fracture defect, and had been cut by the reaming. I replaced that cerclage device with an additional cerclage device. The grit blasted sleeve was placed over the final stem, and then the entire device was now tamped into place, with care made to restore the normal anteversion based on the remaining femoral neck anatomy. This was tamped with mallet blows slowly and firmly, with excellent security, quite a tight fit, but able to slowly be advanced until the shoulder of the implant matches the top of the greater trochanter and is anatomically positioned. Next I placed 3 additional Arthrex TigerTape cerclage devices around the upper portion of the implant at the area of the grit-blasted sleeve and bone defect, but did not cinch them yet. I then used the corticocancellous strut, which I fashioned into 2 pieces using an osteotome, and placed these along the medial calcar filling the bone defect. I then cinched the cerclage devices and tightened them to 80 N, securing the bone graft firmly against the sleeve. I then tied additional throws to secure the cerclage devices. The final bipolar head was secured to the Zaragoza taper with a mallet blows and an impactor. The hip was reduced a final time with my technical administrative assistant applying longitudinal traction and rotation, while I guided the head into the acetabulum. A final check was made of limb length and stability in multiple positions. Copious irrigation was used. A periarticular injection was used. No drains were used. The capsule was closed with #2 Ethibond suture. One gram of powdered Vancomycin was used during the closure. The fascia was closed with #2 Vicryl suture. Next, #2-0 Vicryl suture was used in the subcutaneous tissues by my technical administrative assistant, and shauna were placed in the skin by my technical administrative assistant. Acticoat and a HAKEEM single use negative pressure dressing were used. The patient was then transferred carefully back to a hospital bed. An abduction pillow was used. The patient tolerated the procedure well. Needle and sponge counts were correct. There were no apparent complications. STEPHAN LEWIS MD Nov 23, 2019 16:12
[2019-11-23] MEDS: fentaNYL PF VIAL 100 MCG/2 ML VIAL IVP PRN ×2 (16:13→16:44)
[2019-11-23] MEDS ORDERED: DEXTROSE 50% 25 GM / 50ML DISP.SYRIN. IV PRN (16:15)
[2019-11-23] MEDS ORDERED: oxyCODONE/APAP 5/325 1 TAB TABLET PO PRN (16:15)
[2019-11-23] MEDS ORDERED: MORPHINE SULFATE 4 MG/ML VIAL. IVP PRN (16:15)
[2019-11-23] MEDS ORDERED: POLYETHYLENE GLYCOL 3350 17 GM PACKET. PO PRN (16:15)
--- NOTE | 2019-11-23 16:36 | RAD ---
Single view left hip INDICATION: Evaluation of hip hardware in operating room COMPARISON: Left hip x-rays of 11/22/2019 FINDINGS: Single crosstable AP view of the left hip in the operating room shows an intramedullary florinda through the proximal femur replacing the previous fixation pin in the proximal left femur. There is an open surgical wound overlying the left hip. IMPRESSION: Intramedullary florinda in apparent satisfactory position in the proximal left femur on AP crosstable view of the left hip Electronically signed by: Nicci Reyes MD (11/23/2019 4:33 PM) [id number]
[2019-11-23] MEDS: FERROUS SULFATE 325 MG TABLET. PO SCH (16:45)
--- NOTE | 2019-11-23 16:51 | RAD ---
Examination: HIP LEFT 2V WITH PELVIS History: Reason: postop -- include entire prosthesis / Spl. Instructions: / History: Comparison/Correlation: None Findings: Frontal view and crosstable lateral views of the left hip were obtained. Frontal view of the lower pelvis and proximal femora obtained. Total left hip joint arthroplasty is intact. No loosening evident. Cortical defects are primarily seen along the medial aspect of the proximal femoral level. Soft tissue gas corresponds with history noted. Skin shauna evident. Right hip joint is unremarkable. Impression: Postoperative findings along the left total hip joint arthroplasty. Electronically signed by: Moisés Penn MD (11/23/2019 4:48 PM) [facility]
[2019-11-23 16:54] LABS: HEMATOCRIT 21.1 % (39.0-53.0); HEMOGLOBIN 7.3 g/dL (13.0-17.5); RED BLOOD COUNT 2.22 x10^6/uL (4.30-5.70); RED CELL DISTRIBUTION WIDTH 13.5 % (11.5-14.5); WHITE BLOOD COUNT 7.8 x10^3/uL (4.0-11.0)
[2019-11-23 19:15] VITALS: BP 91/41
[2019-11-23] MEDS: ATORVASTATIN CALCIUM 10 MG TABLET. PO SCH (22:09)
[2019-11-23] MEDS: ASPIRIN ENTERIC COATED 325 MG TABLET.DR. PO SCH (22:10)
--- NOTE | 2019-11-23 23:00 | NUR ---
Patient only able to urinate 25cc of urine x3. Patient c/o of discomfort and is very restless. Bladder scan done. >500 cc. Patient straight catheterized and received 1000cc of yellow clear urine. Patient tolerated procedure well. Will continue to monitor.
[2019-11-23 23:27] VITALS: BP 115/44
[2019-11-24] VITALS (10 sets, daily range): BP systolic 101–131; BP diastolic 42–81
[2019-11-24] MEDS ORDERED: MAGNESIUM HYDROXIDE 2,400 MG/30 ML ORAL.SUSP. PO PRN (06:00)
[2019-11-24] MEDS: LISINOPRIL 10 MG TABLET PO SCH (07:48)
[2019-11-24] MEDS: ATENOLOL 25 MG TABLET. PO SCH (07:58)
[2019-11-24 08:11] LABS: BASO % 0 % (0-3); EOS % 0 % (0-3); LYMPH # 0.4 x10^3/uL (1.0-4.8); LYMPH % 6 % (24-48); MEAN CORPUSCULAR HEMOGLOBIN 33 pg (25-35); MEAN CORPUSCULAR HGB CONC 36 g/dL (31-37); MEAN CORPUSCULAR VOLUME 93 fL (79-100); MONO # 1.4 x10^3/uL (0.0-1.1); MONO % 19 % (0-9); NEUT # 5.5 x10^3/uL (1.8-7.7); NEUT % 76 % (31-73); PLATELET COUNT 127 x10^3/uL (140-400); RED BLOOD COUNT 2.02 x10^6/uL (4.30-5.70); RED CELL DISTRIBUTION WIDTH 13.4 % (11.5-14.5); WHITE BLOOD COUNT 7.3 x10^3/uL (4.0-11.0)
[2019-11-24] MEDS: SENNOSIDES/DOCUSATE 8.6/50MG TABLET. PO SCH (08:12)
[2019-11-24] MEDS: MULTIVITAMIN with MINERAL TABLET. PO SCH (08:12)
[2019-11-24] MEDS: FERROUS SULFATE 325 MG TABLET. PO SCH ×2 (08:12→15:11)
[2019-11-24] MEDS: ASPIRIN ENTERIC COATED 325 MG TABLET.DR. PO SCH ×2 (08:12→21:43)
[2019-11-24] MEDS: oxyCODONE/APAP 5/325 1 TAB TABLET PO PRN ×2 (08:12→15:11)
[2019-11-24] MEDS: TAMSULOSIN 0.4 MG CAP.ER.24H. PO SCH (08:12)
[2019-11-24] MEDS: IV 1/2 NORMAL SALINE 1,000 ML IV SCH ×2 (08:13→15:08)
[2019-11-24 08:24] LABS: ALBUMIN 2.4 g/dL (3.4-5.0); CALCIUM 7.2 mg/dL (8.5-10.1); CREATININE 1.1 mg/dL (0.7-1.3); GFR 64.7; POTASSIUM 4.4 mmol/L (3.5-5.1); TOTAL BILIRUBIN 0.6 mg/dL (0.2-1.0); TOTAL PROTEIN 4.9 g/dL (6.4-8.2)
--- NOTE | 2019-11-24 08:26 | PDOC ---
Provider Note Date of Service: DATE: 11/24/19 TIME: 08:24 Provider Note feels ok but weak, hb 7.5 11/22, today pending- was 14- may need prbc, will see Justifications for Admission Other Justification MAURIZIO CHAPA MD Nov 24, 2019 08:26
[2019-11-24 08:27] LABS: HEMATOCRIT 18.8 % (39.0-53.0); HEMOGLOBIN 6.7 g/dL (13.0-17.5)
[2019-11-24 08:36] LABS: PROTHROMBIN TIME PATIENT 16.3 SEC (11.7-14.0)
[2019-11-24] MEDS ORDERED: SENNOSIDES/DOCUSATE 8.6/50MG TABLET. PO SCH (09:00)
[2019-11-24 09:53] LABS: % BANDS 6 % (0-9); % LYMPHS 8 % (24-48); % MONOS 14 % (0-10); % SEGS 72 % (35-66)
[2019-11-24 09:54] LABS: PLT ESTIMATE DECREASED (ADEQUATE)
[2019-11-24 14:21] LABS: HEMATOCRIT 23.6 % (39.0-53.0); HEMOGLOBIN 8.1 g/dL (13.0-17.5)
--- NOTE | 2019-11-24 15:20 | PDOC ---
PROGRESS NOTES Date of Service DATE: 11/24/19 TIME: 15:15 Subjective Subjective Received 1 unit of packed cells due to acute blood loss anemia. Seems a little confused but feels okay. Objective Vital Signs Vital Signs Date Time Temp Pulse Resp B/P (MAP) Pulse Ox O2 Delivery O2 Flow Rate FiO2 11/24/19 12:42 99.0 121 16 116/51 99.0 11/24/19 11:00 92 Room Air 11/24/19 07:24 2.0 Physical Exam He looks a little confused but is conversing well and has no focal findings. Able to dorsiflex and plantarflex the foot without difficulty, no evidence of neurovascular injury. Leg length, rotation and alignment seem anatomic. Sensation intact distally and good capillary refill. Labs Laboratory Tests Test 11/23/19 16:40 11/24/19 06:45 11/24/19 14:14 White Blood Count 7.8 x10^3/uL (4.0-11.0) 7.3 x10^3/uL (4.0-11.0) Red Blood Count 2.22 x10^6/uL (4.30-5.70) 2.02 x10^6/uL (4.30-5.70) Hemoglobin 7.3 g/dL (13.0-17.5) 6.7 g/dL (13.0-17.5) 8.1 g/dL (13.0-17.5) Hematocrit 21.1 % (39.0-53.0) 18.8 % (39.0-53.0) 23.6 % (39.0-53.0) Mean Corpuscular Volume 95 fL (79-100) 93 fL (79-100) Mean Corpuscular Hemoglobin 33 pg (25-35) 33 pg (25-35) Mean Corpuscular Hemoglobin Concent 34 g/dL (31-37) 36 g/dL (31-37) 34 g/dL (31-37) Red Cell Distribution Width 13.5 % (11.5-14.5) 13.4 % (11.5-14.5) Platelet Count 109 x10^3/uL (140-400) 127 x10^3/uL (140-400) Neutrophils (%) (Auto) 76 % (31-73) Lymphocytes (%) (Auto) 6 % (24-48) Monocytes (%) (Auto) 19 % (0-9) Eosinophils (%) (Auto) 0 % (0-3) Basophils (%) (Auto) 0 % (0-3) Neutrophils # (Auto) 5.5 x10^3/uL (1.8-7.7) Lymphocytes # (Auto) 0.4 x10^3/uL (1.0-4.8) Monocytes # (Auto) 1.4 x10^3/uL (0.0-1.1) Eosinophils # (Auto) 0.0 x10^3/uL (0.0-0.7) Basophils # (Auto) 0.0 x10^3/uL (0.0-0.2) Segmented Neutrophils % 72 % (35-66) Band Neutrophils % 6 % (0-9) Lymphocytes % 8 % (24-48) Monocytes % 14 % (0-10) Platelet Estimate Decreased (ADEQUATE) Prothrombin Time 16.3 SEC (11.7-14.0) Prothromb Time International Ratio 1.4 (0.8-1.1) Sodium Level 134 mmol/L (136-145) Potassium Level 4.4 mmol/L (3.5-5.1) Chloride Level 100 mmol/L (98-107) Carbon Dioxide Level 27 mmol/L (21-32) Anion Gap 7 (6-14) Blood Urea Nitrogen 23 mg/dL (8-26) Creatinine 1.1 mg/dL (0.7-1.3) Estimated GFR (Cockcroft-Gault) 64.7 BUN/Creatinine Ratio 21 (6-20) Glucose Level 148 mg/dL (70-99) Calcium Level 7.2 mg/dL (8.5-10.1) Magnesium Level 1.8 mg/dL (1.8-2.4) Total Bilirubin 0.6 mg/dL (0.2-1.0) Aspartate Amino Transf (AST/SGOT) 52 U/L (15-37) Alanine Aminotransferase (ALT/SGPT) 16 U/L (16-63) Alkaline Phosphatase 31 U/L (46-116) Total Protein 4.9 g/dL (6.4-8.2) Albumin 2.4 g/dL (3.4-5.0) Albumin/Globulin Ratio 1.0 (1.0-1.7) Laboratory Tests Test 11/23/19 16:40 11/24/19 06:45 11/24/19 14:14 White Blood Count 7.8 x10^3/uL (4.0-11.0) 7.3 x10^3/uL (4.0-11.0) Red Blood Count 2.22 x10^6/uL (4.30-5.70) 2.02 x10^6/uL (4.30-5.70) Hemoglobin 7.3 g/dL (13.0-17.5) 6.7 g/dL (13.0-17.5) 8.1 g/dL (13.0-17.5) Hematocrit 21.1 % (39.0-53.0) 18.8 % (39.0-53.0) 23.6 % (39.0-53.0) Mean Corpuscular Volume 95 fL (79-100) 93 fL (79-100) Mean Corpuscular Hemoglobin 33 pg (25-35) 33 pg (25-35) Mean Corpuscular Hemoglobin Concent 34 g/dL (31-37) 36 g/dL (31-37) 34 g/dL (31-37) Red Cell Distribution Width 13.5 % (11.5-14.5) 13.4 % (11.5-14.5) Platelet Count 109 x10^3/uL (140-400) 127 x10^3/uL (140-400) Neutrophils (%) (Auto) 76 % (31-73) Lymphocytes (%) (Auto) 6 % (24-48) Monocytes (%) (Auto) 19 % (0-9) Eosinophils (%) (Auto) 0 % (0-3) Basophils (%) (Auto) 0 % (0-3) Neutrophils # (Auto) 5.5 x10^3/uL (1.8-7.7) Lymphocytes # (Auto) 0.4 x10^3/uL (1.0-4.8) Monocytes # (Auto) 1.4 x10^3/uL (0.0-1.1) Eosinophils # (Auto) 0.0 x10^3/uL (0.0-0.7) Basophils # (Auto) 0.0 x10^3/uL (0.0-0.2) Segmented Neutrophils % 72 % (35-66) Band Neutrophils % 6 % (0-9) Lymphocytes % 8 % (24-48) Monocytes % 14 % (0-10) Platelet Estimate Decreased (ADEQUATE) Prothrombin Time 16.3 SEC (11.7-14.0) Prothromb Time International Ratio 1.4 (0.8-1.1) Sodium Level 134 mmol/L (136-145) Potassium Level 4.4 mmol/L (3.5-5.1) Chloride Level 100 mmol/L (98-107) Carbon Dioxide Level 27 mmol/L (21-32) Anion Gap 7 (6-14) Blood Urea Nitrogen 23 mg/dL (8-26) Creatinine 1.1 mg/dL (0.7-1.3) Estimated GFR (Cockcroft-Gault) 64.7 BUN/Creatinine Ratio 21 (6-20) Glucose Level 148 mg/dL (70-99) Calcium Level 7.2 mg/dL (8.5-10.1) Magnesium Level 1.8 mg/dL (1.8-2.4) Total Bilirubin 0.6 mg/dL (0.2-1.0) Aspartate Amino Transf (AST/SGOT) 52 U/L (15-37) Alanine Aminotransferase (ALT/SGPT) 16 U/L (16-63) Alkaline Phosphatase 31 U/L (46-116) Total Protein 4.9 g/dL (6.4-8.2) Albumin 2.4 g/dL (3.4-5.0) Albumin/Globulin Ratio 1.0 (1.0-1.7) Imaging Report reviewed, images independently reviewed. Satisfactory appearance of the revision type component. The medial proximal femur area is areas of bone graft and possibly some elements of the [place] bone which are fractured. The medial bone graft is held in place with cerclage devices which are nonmetallic and so not visualized radiographically. [facility] [address] [place] [address] IMAGING REPORT Signed PATIENT: RADHA LAMBERT ACCOUNT: [id number] : 1940 LOCATION: [address] [place] [address] AGE: 79 SEX: M EXAM STATUS: ADM IN ORD. PHYSICIAN: STEPHAN CIFUENTES MD REASON: postop -- include entire prosthesis PROCEDURE: HIP LEFT 2V WITH PELVIS Examination: HIP LEFT 2V WITH PELVIS History: Reason: postop -- include entire prosthesis / Spl. Instructions: / History: Comparison/Correlation: None Findings: Frontal view and crosstable lateral views of the left hip were obtained. Frontal view of the lower pelvis and proximal femora obtained. Total left hip joint arthroplasty is intact. No loosening evident. Cortical defects are primarily seen along the medial aspect of the proximal femoral level. Soft tissue gas corresponds with history noted. Skin shauna evident. Right hip joint is unremarkable. Impression: Postoperative findings along the left total hip joint arthroplasty. Electronically signed by: Moisés Darling MD (11/23/2019 4:48 PM) [facility] DICTATED and SIGNED BY: MOISÉS DARLING MD DATE: 11/23/19 1648 Assessment Assessment POD#1 after left hip uncemented hemiarthroplasty with allograft for femoral neck fracture and associated fracture from bone tumor removal. Plan Plan of Care Continue IV fluids at 75/h. He is still dehydrated according to the BUN and creatinine. He did have postoperative anemia and it improved with the tra nsfusion. Recheck labs in the morning. He is not ready for discharge by any means. He tried to get out of bed without nursing help and I reinforced to him that he always needs to ask for help. The confusion is probably understandable considering the blood loss, dehydration from blood loss, prolonged surgery, and his age. 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 Justicifation of Admission Dx: Justifications for Admission: Justification of Admission Dx: Yes Fracture: Fracture STEPHAN CIFUENTES MD Nov 24, 2019 15:20
[2019-11-24] MEDS ORDERED: BISACODYL 10 MG SUPP.RECT. PR PRN (16:00)
[2019-11-24] MEDS: ATORVASTATIN CALCIUM 10 MG TABLET. PO SCH (21:43)
[2019-11-25 03:42] VITALS: BP 143/63
[2019-11-25] MEDS: IV 1/2 NORMAL SALINE 1,000 ML IV SCH ×2 (06:40→20:00)
[2019-11-25 07:00] VITALS: BP 146/63
[2019-11-25] MEDS: SENNOSIDES/DOCUSATE 8.6/50MG TABLET. PO SCH (08:24)
[2019-11-25] MEDS: TAMSULOSIN 0.4 MG CAP.ER.24H. PO SCH (08:24)
[2019-11-25] MEDS: FERROUS SULFATE 325 MG TABLET. PO SCH ×2 (08:24→15:26)
[2019-11-25] MEDS: ASPIRIN ENTERIC COATED 325 MG TABLET.DR. PO SCH ×2 (08:24→21:16)
[2019-11-25] MEDS: LISINOPRIL 10 MG TABLET PO SCH (08:24)
[2019-11-25] MEDS: MULTIVITAMIN with MINERAL TABLET. PO SCH (08:25)
[2019-11-25] MEDS: ATENOLOL 25 MG TABLET. PO SCH (08:25)
--- NOTE | 2019-11-25 09:37 | PDOC ---
DATE OF SERVICE: DATE: 11/25/19 TIME: 09:36 GENERAL General: vss and afebrile. awake and alert and appears comfortable. chest clear, heart regular, abdomen benign. clinical course reviewed. Hb up to 8.1 following transfusion and will recheck in am. otherwise same. VITAL SIGNS/I&O Vital Signs/I&O: Vital Signs Date Time Temp Pulse Resp B/P (MAP) Pulse Ox O2 Delivery O2 Flow Rate FiO2 11/25/19 08:25 100 146/63 11/25/19 08:00 Room Air 11/25/19 07:00 99.0 18 94 99.0 11/24/19 19:40 2.0 I & O 11/24/19 11/24/19 11/25/19 15:00 23:00 07:00 Intake Total 815 ml 480 ml 1005 ml Output Total 1025 ml 650 ml Balance 815 ml -545 ml 355 ml ALLERGIES Allergies: Allergies Coded Allergies Type Severity Reaction Last Updated Verified No Known Drug Allergies 06/14/14 No LAB Lab: Laboratory Tests Test 11/24/19 14:14 Hemoglobin 8.1 g/dL (13.0-17.5) L Hematocrit 23.6 % (39.0-53.0) L Mean Corpuscular Hemoglobin Concent 34 g/dL (31-37) Laboratory Tests 11/24/19 14:14 Justifications for Admission Other Justification MARYLIN PRADO MD Nov 25, 2019 09:37
[2019-11-25 11:00] VITALS: BP 100/45
[2019-11-25 15:00] VITALS: BP 103/39
[2019-11-25] MEDS: oxyCODONE/APAP 5/325 1 TAB TABLET PO PRN (15:27)
[2019-11-25 19:00] VITALS: BP 100/35
[2019-11-25] MEDS: ATORVASTATIN CALCIUM 10 MG TABLET. PO SCH (21:16)
[2019-11-25 23:00] VITALS: BP 114/51
[2019-11-26 03:00] VITALS: BP 130/51
[2019-11-26] MEDS: oxyCODONE/APAP 5/325 1 TAB TABLET PO PRN ×3 (04:27→18:15)
[2019-11-26 07:00] VITALS: BP_SYST 112; BP_DIAS 43; BP_DIAS 44
[2019-11-26 07:41] LABS: BASO % 0 % (0-3); EOS # 0.1 x10^3/uL (0.0-0.7); EOS % 2 % (0-3); HEMATOCRIT 21.4 % (39.0-53.0); HEMOGLOBIN 7.5 g/dL (13.0-17.5); LYMPH # 0.6 x10^3/uL (1.0-4.8); LYMPH % 9 % (24-48); MEAN CORPUSCULAR HEMOGLOBIN 33 pg (25-35); MEAN CORPUSCULAR HGB CONC 35 g/dL (31-37); MEAN CORPUSCULAR VOLUME 93 fL (79-100); MONO # 1.1 x10^3/uL (0.0-1.1); MONO % 15 % (0-9); NEUT # 5.3 x10^3/uL (1.8-7.7); NEUT % 74 % (31-73); PLATELET COUNT 210 x10^3/uL (140-400); RED BLOOD COUNT 2.31 x10^6/uL (4.30-5.70); RED CELL DISTRIBUTION WIDTH 13.5 % (11.5-14.5); WHITE BLOOD COUNT 7.1 x10^3/uL (4.0-11.0)
[2019-11-26] MEDS: MULTIVITAMIN with MINERAL TABLET. PO SCH (08:40)
[2019-11-26] MEDS: LISINOPRIL 10 MG TABLET PO SCH (08:40)
[2019-11-26] MEDS: ASPIRIN ENTERIC COATED 325 MG TABLET.DR. PO SCH ×2 (08:40→19:41)
[2019-11-26] MEDS: TAMSULOSIN 0.4 MG CAP.ER.24H. PO SCH (08:40)
[2019-11-26] MEDS: SENNOSIDES/DOCUSATE 8.6/50MG TABLET. PO SCH (08:41)
[2019-11-26] MEDS: FERROUS SULFATE 325 MG TABLET. PO SCH ×2 (08:41→17:11)
[2019-11-26] MEDS: ATENOLOL 25 MG TABLET. PO SCH (08:41)
[2019-11-26] MEDS: IV 1/2 NORMAL SALINE 1,000 ML IV SCH ×2 (09:20→22:40)
--- NOTE | 2019-11-26 10:45 | PDOC ---
PROGRESS NOTES Date of Service DATE: 11/26/19 TIME: 10:44 Subjective Subjective Problems overnight: Resting comfortably, has no current complaints Objective Vital Signs Vital Signs Date Time Temp Pulse Resp B/P (MAP) Pulse Ox O2 Delivery O2 Flow Rate FiO2 11/26/19 08:41 67 112/44 11/26/19 07:00 98.1 18 99 Nasal Cannula 2.0 98.1 Physical Exam Left hip dressing clean dry intact leg lengths equal distal neurovascular status intact Labs Laboratory Tests Test 11/24/19 14:14 11/26/19 07:07 Hemoglobin 8.1 g/dL (13.0-17.5) 7.5 g/dL (13.0-17.5) Hematocrit 23.6 % (39.0-53.0) 21.4 % (39.0-53.0) Mean Corpuscular Hemoglobin Concent 34 g/dL (31-37) 35 g/dL (31-37) White Blood Count 7.1 x10^3/uL (4.0-11.0) Red Blood Count 2.31 x10^6/uL (4.30-5.70) Mean Corpuscular Volume 93 fL (79-100) Mean Corpuscular Hemoglobin 33 pg (25-35) Red Cell Distribution Width 13.5 % (11.5-14.5) Platelet Count 210 x10^3/uL (140-400) Neutrophils (%) (Auto) 74 % (31-73) Lymphocytes (%) (Auto) 9 % (24-48) Monocytes (%) (Auto) 15 % (0-9) Eosinophils (%) (Auto) 2 % (0-3) Basophils (%) (Auto) 0 % (0-3) Neutrophils # (Auto) 5.3 x10^3/uL (1.8-7.7) Lymphocytes # (Auto) 0.6 x10^3/uL (1.0-4.8) Monocytes # (Auto) 1.1 x10^3/uL (0.0-1.1) Eosinophils # (Auto) 0.1 x10^3/uL (0.0-0.7) Basophils # (Auto) 0.0 x10^3/uL (0.0-0.2) Laboratory Tests Test 11/26/19 07:07 White Blood Count 7.1 x10^3/uL (4.0-11.0) Red Blood Count 2.31 x10^6/uL (4.30-5.70) Hemoglobin 7.5 g/dL (13.0-17.5) Hematocrit 21.4 % (39.0-53.0) Mean Corpuscular Volume 93 fL (79-100) Mean Corpuscular Hemoglobin 33 pg (25-35) Mean Corpuscular Hemoglobin Concent 35 g/dL (31-37) Red Cell Distribution Width 13.5 % (11.5-14.5) Platelet Count 210 x10^3/uL (140-400) Neutrophils (%) (Auto) 74 % (31-73) Lymphocytes (%) (Auto) 9 % (24-48) Monocytes (%) (Auto) 15 % (0-9) Eosinophils (%) (Auto) 2 % (0-3) Basophils (%) (Auto) 0 % (0-3) Neutrophils # (Auto) 5.3 x10^3/uL (1.8-7.7) Lymphocytes # (Auto) 0.6 x10^3/uL (1.0-4.8) Monocytes # (Auto) 1.1 x10^3/uL (0.0-1.1) Eosinophils # (Auto) 0.1 x10^3/uL (0.0-0.7) Basophils # (Auto) 0.0 x10^3/uL (0.0-0.2) Assessment Assessment POD#excision of bone tumor and left hip hemiarthroplasty for fracture Plan Plan of Care He continues partial weightbearing due to the osteotomy Continue medical management placement when medically stable Justicifation of Admission Dx: Justifications for Admission: Justification of Admission Dx: N/A Fracture: Fracture MELVA SIMMS MD Nov 26, 2019 10:45
[2019-11-26 11:00] VITALS: BP 101/45
--- NOTE | 2019-11-26 11:24 | PDOC ---
DATE OF SERVICE: DATE: 11/26/19 TIME: 11:23 GENERAL General: vss and afebrile. awake and alert and son in attendance. they both think he could rehab at home but ortho suggesting snu. will see therapy recommendations on same. chest clear, heart regular, abdomen benign. Hb at 7.5 today and tolerating this well. continue rehab. await final pathology. VITAL SIGNS/I&O Vital Signs/I&O: Vital Signs Date Time Temp Pulse Resp B/P (MAP) Pulse Ox O2 Delivery O2 Flow Rate FiO2 11/26/19 11:00 98.3 66 18 101/45 (63) 98 Nasal Cannula 2.0 98.3 I & O 11/25/19 11/25/19 11/26/19 15:00 23:00 07:00 Intake Total 120 ml Output Total 400 ml 150 ml 550 ml Balance -280 ml -150 ml -550 ml ALLERGIES Allergies: Allergies Coded Allergies Type Severity Reaction Last Updated Verified No Known Drug Allergies 06/14/14 No LAB Lab: Laboratory Tests Test 11/26/19 07:07 White Blood Count 7.1 x10^3/uL (4.0-11.0) Red Blood Count 2.31 x10^6/uL (4.30-5.70) L Hemoglobin 7.5 g/dL (13.0-17.5) L Hematocrit 21.4 % (39.0-53.0) L Mean Corpuscular Volume 93 fL (79-100) Mean Corpuscular Hemoglobin 33 pg (25-35) Mean Corpuscular Hemoglobin Concent 35 g/dL (31-37) Red Cell Distribution Width 13.5 % (11.5-14.5) Platelet Count 210 x10^3/uL (140-400) Neutrophils (%) (Auto) 74 % (31-73) H Lymphocytes (%) (Auto) 9 % (24-48) L Monocytes (%) (Auto) 15 % (0-9) H Eosinophils (%) (Auto) 2 % (0-3) Basophils (%) (Auto) 0 % (0-3) Neutrophils # (Auto) 5.3 x10^3/uL (1.8-7.7) Lymphocytes # (Auto) 0.6 x10^3/uL (1.0-4.8) L Monocytes # (Auto) 1.1 x10^3/uL (0.0-1.1) Eosinophils # (Auto) 0.1 x10^3/uL (0.0-0.7) Basophils # (Auto) 0.0 x10^3/uL (0.0-0.2) Laboratory Tests 11/26/19 07:07 Justifications for Admission Other Justification APPLMARYLIN MD Nov 26, 2019 11:24
[2019-11-26 15:00] VITALS: BP 107/44
[2019-11-26 19:00] VITALS: BP 88/44
[2019-11-26] MEDS: MORPHINE SULFATE 2 MG/ML VIAL. IVP PRN (19:27)
[2019-11-26] MEDS: ATORVASTATIN CALCIUM 10 MG TABLET. PO SCH (19:41)
[2019-11-26 23:00] VITALS: BP 113/50
[2019-11-27 03:00] VITALS: BP 143/47
--- NOTE | 2019-11-27 06:01 | NUR ---
refused bath last night.
[2019-11-27 07:00] VITALS: BP 126/53
[2019-11-27] MEDS ORDERED: FERR325T72 PO (08:03)
[2019-11-27] MEDS ORDERED: POLY17PO28 PO (08:03)
[2019-11-27] MEDS ORDERED: ASPI325T11 PO (08:03)
[2019-11-27] MEDS ORDERED: ERGO500027 PO (08:03)
[2019-11-27] MEDS ORDERED: OXYC1TAB15 PO (08:03)
--- NOTE | 2019-11-27 08:19 | PDOC ---
SUBJECTIVE Subjective Pain adequately controlled, goal to transition to PO only. Awaiting final path OBJECTIVE Objective Reviewed Vital Signs Vital Signs Date Time Temp Pulse Resp B/P (MAP) Pulse Ox O2 Delivery O2 Flow Rate FiO2 11/27/19 07:00 98.3 70 18 126/53 (77) 98 98.3 11/27/19 03:00 98.6 72 16 143/47 (79) 99 Room Air 2.0 98.6 11/26/19 23:00 97.7 70 14 113/50 (71) 95 Room Air 2.0 97.7 11/26/19 20:00 Room Air 11/26/19 19:57 20 95 Room Air 11/26/19 19:27 20 98 Room Air 11/26/19 19:15 20 95 Room Air 11/26/19 19:00 98.3 68 16 88/44 (59) 95 Nasal Cannula 2.0 98.3 11/26/19 18:15 Nasal Cannula 11/26/19 15:00 98.2 61 18 107/44 (65) 98 Nasal Cannula 2.0 98.2 11/26/19 14:20 Room Air 11/26/19 12:34 Room Air 11/26/19 11:00 98.3 66 18 101/45 (63) 98 Nasal Cannula 2.0 98.3 11/26/19 08:41 67 112/44 11/26/19 08:40 67 112/44 I & O Intake and Output 11/27/19 07:00 Intake Total 650 ml Output Total 450 ml Balance 200 ml Intake Oral 650 ml Blood Product 0 ml Output Urine Total 450 ml PHYSICAL EXAM Physical Exam Alert, oriented RRR CTAB Dressing on left hip c\d\i ASSESSMENT/PLAN Assessment/Plan s/p excision of bone tumor and left hip hemiarthroplasty for fracture Awaiting final path Awaiting placement Partial weightbearing Justifications for Admission Other Justification REZA,CORA Randle MD Nov 27, 2019 08:19
--- NOTE | 2019-11-27 08:36 | PDOC ---
ORTHO PROGRESS NOTES DATE: 11/27/19 TIME: 08:32 Subjective Patient states pain is a 7 or 8 right now and has asking for pain medicines for the last hour. Post-op Day: 3 Procedure Excision of bone tumor and left hip hemiarthroplasty for fracture. Vitals Vital Signs Date Time Temp Pulse Resp B/P (MAP) Pulse Ox O2 Delivery O2 Flow Rate FiO2 11/27/19 07:00 98.3 70 18 126/53 (77) 98 98.3 11/27/19 03:00 Room Air 2.0 Labs Laboratory Tests Test 11/26/19 07:07 White Blood Count 7.1 x10^3/uL (4.0-11.0) Red Blood Count 2.31 x10^6/uL (4.30-5.70) Hemoglobin 7.5 g/dL (13.0-17.5) Hematocrit 21.4 % (39.0-53.0) Mean Corpuscular Volume 93 fL (79-100) Mean Corpuscular Hemoglobin 33 pg (25-35) Mean Corpuscular Hemoglobin Concent 35 g/dL (31-37) Red Cell Distribution Width 13.5 % (11.5-14.5) Platelet Count 210 x10^3/uL (140-400) Neutrophils (%) (Auto) 74 % (31-73) Lymphocytes (%) (Auto) 9 % (24-48) Monocytes (%) (Auto) 15 % (0-9) Eosinophils (%) (Auto) 2 % (0-3) Basophils (%) (Auto) 0 % (0-3) Neutrophils # (Auto) 5.3 x10^3/uL (1.8-7.7) Lymphocytes # (Auto) 0.6 x10^3/uL (1.0-4.8) Monocytes # (Auto) 1.1 x10^3/uL (0.0-1.1) Eosinophils # (Auto) 0.1 x10^3/uL (0.0-0.7) Basophils # (Auto) 0.0 x10^3/uL (0.0-0.2) Notes Awake and alert in good spirits Assessment and Plan Stop day #3 status post excision of bone tumor left hip with hemiarthroplasty for fracture. Motor and sensation intact distally at the left lower extremity. Calf is soft and nontender. Patient is able to flex at the knee and hip. Dressing is dry and intact. Up with physical therapy as tolerated. RFIDA MCKNIGHT APRN Nov 27, 2019 08:36
[2019-11-27] MEDS: oxyCODONE/APAP 5/325 1 TAB TABLET PO PRN ×2 (08:44→17:41)
[2019-11-27] MEDS: TAMSULOSIN 0.4 MG CAP.ER.24H. PO SCH (08:44)
[2019-11-27] MEDS: MULTIVITAMIN with MINERAL TABLET. PO SCH (08:44)
[2019-11-27] MEDS: ASPIRIN ENTERIC COATED 325 MG TABLET.DR. PO SCH ×2 (08:45→20:34)
[2019-11-27] MEDS: FERROUS SULFATE 325 MG TABLET. PO SCH ×2 (08:45→17:20)
[2019-11-27] MEDS: SENNOSIDES/DOCUSATE 8.6/50MG TABLET. PO SCH (08:45)
[2019-11-27] MEDS: ATENOLOL 25 MG TABLET. PO SCH (08:45)
[2019-11-27] MEDS: LISINOPRIL 10 MG TABLET PO SCH (08:45)
[2019-11-27 11:00] VITALS: BP 107/52
[2019-11-27 15:00] VITALS: BP 105/60
[2019-11-27 19:00] VITALS: BP 105/42
[2019-11-27] MEDS: ATORVASTATIN CALCIUM 10 MG TABLET. PO SCH (20:34)
[2019-11-27 23:00] VITALS: BP 128/50
[2019-11-28 03:00] VITALS: BP 126/54
[2019-11-28] MEDS: oxyCODONE/APAP 5/325 1 TAB TABLET PO PRN ×3 (04:24→15:59)
[2019-11-28 07:00] VITALS: BP 133/61
--- NOTE | 2019-11-28 07:54 | PDOC ---
SUBJECTIVE Subjective Doing ok, awaiting placement OBJECTIVE Objective Reviewed Vital Signs Vital Signs Date Time Temp Pulse Resp B/P (MAP) Pulse Ox O2 Delivery O2 Flow Rate FiO2 11/28/19 05:24 20 96 Room Air 11/28/19 04:24 20 96 Room Air 2.0 11/28/19 03:00 97.8 72 17 126/54 (78) 96 Room Air 97.8 11/27/19 23:00 98.1 67 18 128/50 (76) 93 Room Air 98.1 11/27/19 20:00 Room Air 11/27/19 19:01 Room Air 11/27/19 19:00 98.2 70 18 105/42 (63) 95 98.2 11/27/19 17:41 Room Air 11/27/19 15:00 98.4 71 18 105/60 (75) 93 98.4 11/27/19 11:00 98.8 77 18 107/52 (70) 91 98.8 11/27/19 10:00 Nasal Cannula 2.0 11/27/19 08:45 70 126/53 11/27/19 08:45 70 126/53 11/27/19 08:44 Nasal Cannula 2.0 11/27/19 08:20 Room Air 2.0 I & O Intake and Output 11/28/19 07:00 Output Total 750 ml Balance -750 ml Output Urine Total 750 ml PHYSICAL EXAM Physical Exam Alert, oriented RRR CTAB Dressing on left hip c\d\i ASSESSMENT/PLAN Assessment/Plan s/p excision of bone tumor and left hip hemiarthroplasty for fracture Awaiting final path Partial weightbearing [facility] Justifications for Admission Other Justification CORA COBB MD Nov 28, 2019 07:54
[2019-11-28] MEDS: FERROUS SULFATE 325 MG TABLET. PO SCH (08:43)
[2019-11-28] MEDS: SENNOSIDES/DOCUSATE 8.6/50MG TABLET. PO SCH (08:43)
[2019-11-28] MEDS: ATENOLOL 25 MG TABLET. PO SCH (08:44)
[2019-11-28] MEDS: TAMSULOSIN 0.4 MG CAP.ER.24H. PO SCH (08:44)
[2019-11-28] MEDS: LISINOPRIL 10 MG TABLET PO SCH (08:44)
[2019-11-28] MEDS: ASPIRIN ENTERIC COATED 325 MG TABLET.DR. PO SCH (08:44)
[2019-11-28] MEDS: MULTIVITAMIN with MINERAL TABLET. PO SCH (08:44)
[2019-11-28 11:00] VITALS: BP 91/41
--- NOTE | 2019-11-28 12:12 | SNU/HH DC ---
DISCHARGE ORDERS DISCHARGE INFORMATION: DISCHARGE DATE: Nov 28, 2019 FINAL DIAGNOSIS Problems Medical Problems: (1) Contusion of left shoulder Status: Acute (2) Fracture of femoral neck, left Status: Acute CONDITION ON DISCHARGE: Stable CODE STATUS: Code Status: Full MCFP: SNF STAY <30 DAYS: Yes POST DISCHARGE ORDERS: ACTIVITY ORDERS: Other, see below (Toe touch w/ walker, per Ortho recs) WEIGHT BEARING STATUS: Partial weight bearing DIET AFTER DISCHARGE: Regular WOUND/INCISION CARE: Ice to area for comfort TREATMENT/EQUIPMENT ORDERS: ADAPTIVE EQUIPMENT NEEDED: Front wheeled walker Physical Therapy For: Evalulation/Treatment Occupational Therapy For: Evaluation/Treatment DISCHARGE MEDICATIONS: Home Meds Active Scripts Ergocalciferol (Vitamin D2) (Vitamin D2) 1,250 Mcg Capsule, 37461 UNIT PO WEEKLY for vitamin d deficiency for 60 Days, #8 CAP 0 Refills Prov:CORA COBB MD 11/27/19 Polyethylene Glycol 3350 (POLYETHYLENE GLYCOL 3350) 17 Gm Powd.pack, 17 GM PO PRN DAILY PRN for CONSTIPATION for 30 Days, #30 PKT 0 Refills Prov:CORA COBB MD 11/27/19 Oxycodone/Apap 5-325 (PERCOCET 5-325 MG TABLET ) 1 Each Tablet, 1 TAB PO PRN Q4HRS PRN for MODERATE PAIN for 7 Days, #42 TAB 0 Refills Prov:CORA COBB MD 11/27/19 Aspirin (ASPIRIN EC) 325 Mg Tablet.dr, 325 MG PO BID for post op for 30 Days, #60 TAB.SR 0 Refills Prov:CORA COBB MD 11/27/19 Ferrous Sulfate (FEOSOL) 325 Mg Tablet, 325 MG PO BIDWMEALS for anemia for 30 Days, #60 TAB 0 Refills Prov:CORA COBB MD 11/27/19 Tamsulosin Hcl (FLOMAX) 0.4 Mg Cap.er.24h, 1 CAP PO DAILY, #14 CAP Prov:SASCHA SCOTT APRN 07/05/19 Reported Medications Ascorbic Acid (VITAMIN C) 100 Mg Tablet, 100 MG PO 06/28/14 Atorvastatin Calcium (LIPITOR) 10 Mg Tablet, PO HS for FOR CHOLESTEROL, #30 TAB 0 Refills 06/14/14 Lisinopril (LISINOPRIL) 10 Mg Tablet, PO DAILY for FOR HYPERTENSION, #30 TAB 0 Refills 06/14/14 Atenolol (ATENOLOL) 25 Mg Tablet, PO DAILY, TAB 06/14/14 Discontinued Reported Medications Aspirin (ASPIR-LOW) 81 Mg Tablet., 1 TAB PO DAILY, #30 TAB 3 Refills 06/28/14 CORA COBB MD Nov 28, 2019 12:12
--- NOTE | 2019-11-28 12:25 | PDOC3 ---
Discharge Summary Date of Admission: Nov 21, 2019 Date of Discharge: Nov 28, 2019 Follow-Up: Other (1-2 weeks after dc from SNF) FINAL DIAGNOSIS Problems Medical Problems: (1) Contusion of left shoulder Status: Acute (2) Fracture of femoral neck, left Status: Acute Brief Hospital Course Mr. Hall is a 79 year old man who fell and landed on his left side just prior to arrival. He was found to have a nondisplaced fracture of the left femoral neck and a sclerotic density in the proximal femur just distal to the intertrochanteric region measuring 5.1 cm. Possibly an enchondroma, posterior osteoma or other sclerotic lesion. Pt underwent excision of bone tumor and left hip hemiarthroplasty on 11/23/19 and pathology of the sclerotic density is still pending. He had an uncomplicated post operative course and will be discharged to [facility]. CONDITION AT DISCHARGE: Improved, Stable Discharge Medications Active Scripts Active Vitamin D2 (Ergocalciferol (Vitamin D2)) 1,250 Mcg Capsule 50,000 Unit PO WEEKLY 60 Days Polyethylene Glycol 3350 17 Gm Powd.pack 17 Gm PO PRN DAILY PRN 30 Days Percocet 5-325 Mg Tablet (Oxycodone/Acetaminophen) 1 Each Tablet 1 Tab PO PRN Q4HRS PRN 7 Days Aspirin Ec (Aspirin) 325 Mg Tablet.dr 325 Mg PO BID 30 Days Feosol (Ferrous Sulfate) 325 Mg Tablet 325 Mg PO BIDWMEALS 30 Days Flomax (Tamsulosin Hcl) 0.4 Mg Cap.er.24h 1 Cap PO DAILY Reported Vitamin C (Ascorbic Acid) 100 Mg Tablet 100 Mg PO Lipitor (Atorvastatin Calcium) 10 Mg Tablet Unknown Dose PO HS Lisinopril 10 Mg Tablet Unknown Dose PO DAILY Atenolol 25 Mg Tablet Unknown Dose PO DAILY Vital Signs Vital Signs Date Time Temp Pulse Resp B/P (MAP) Pulse Ox O2 Delivery O2 Flow Rate FiO2 11/28/19 11:54 Room Air 11/28/19 08:44 74 133/61 11/28/19 07:00 98.8 20 95 98.8 11/28/19 04:24 2.0 Labs Laboratory Tests Test 11/28/19 11:15 SARS-CoV-2 Antigen (Rapid) Negative (NEGATIVE) Laboratory Tests Test 11/28/19 11:15 SARS-CoV-2 Antigen (Rapid) Negative (NEGATIVE) Allergies Allergies Coded Allergies Type Severity Reaction Last Updated Verified No Known Drug Allergies 06/14/14 No Disposition/Orders: D/C to Another Facility ([facility]) Justicifation of Admission Dx: Justifications for Admission: Justification of Admission Dx: N/A Fracture: Fracture CORA COBB MD Nov 28, 2019 12:25
[2019-11-28 15:00] VITALS: BP 121/50
--- NOTE | 2019-11-28 16:40 | NUR ---
Discharge Note: RADHA LAMBERT Discharge instructions and discharge home medications reviewed with Other facility and a copy given. All questions have been answered and understanding verbalized. The following instructions and handouts were given: Follow up appointment, activity, incision care, pain medication. Discontinued lines and drains: IV line in left wrist. Patient discharged to [facility] with wheelchair via [facility].
--- NOTE | 2019-11-29 16:48 | PDOC4 ---
Operative Note Operative Note Date of Procedure: November 22, 2019. This is a late entry. I distinctly remember dictating this case on the date of surgery into a Microsoft Word document (and looking up the appropriate codes) but apparently did not copy it into the [employer] chart. That copy of my dictation is lost. This repeat dictation is to the best of my recollection. 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 I recommended a cemented bipolar arthroplasty and excision and curettage of the tumor. The patient and I discussed the potential risks of infection, neurovascular injury, limb length discrepancy, dislocation, bleeding, blood clots, or other potential surgical or anesthetic complications. I have routinely done excision of benign tumors and sometimes bypassing of malignant tumors in the setting of partial hip replacement previously, and expected the same in this case. Unfortunately this was more difficult than I had expected. Procedure in Detail: The patient was identified in the preoperative holding area. The correct left hip was marked by me. He was taken to the operating room where a general anesthetic was used. The patient was positioned in the lateral position on the Stulberg hip positioner. A timeout procedure was performed. Preoperative antibiotics were given intravenously. The limb was circumferentially prepared in sterile fashion and sterile drapes were applied with the limb draped free. An impervious stockinette and an [place] drape were used such that the skin was entirely covered. The posterior approach to the hip was utilized. Sharp dissection was used. Bovie electrocautery was used for hemostasis. The fascia carmen was divided. Charnley retractor was placed. My assistant professor of radiology internally rotated the hip. The short external rotators were divided. Fracture hematoma was readily identified. The hip was further rotated. The neck was recut after templating. The neck fragment was removed with a rongeurs. A corkscrew device was used to remove the femoral head and it was measured at 52 mm. #2 Ethibond traction sutures were placed in the capsule. The femoral neck elevator was placed. Soft tissue from the lateral neck was removed. A box osteotome was used. I then placed a pituitary rongeur down the intramedullary canal, and attempted to biopsy this tumor. I took some small pieces and placed these in a specimen cup. I then tried to bypass the tumor with an intramedullary reamer on a manual T-handle. This tumor is exceptionally hard, rock hard, and the most hard tumor that I have ever encountered in 25 years of orthopedic surgery. The T-handle reamer simply slipped off the leading edge of the rock hard tumor and plunged into the femoral cortex. Next I try to drill bit and again there was no chance the drill bit would penetrate into the tumor, and again the drill bit slipped off of the leading edge of this tara mass, and penetrated into the femoral cortex. By this time I had created a fracture of the medial cortex, so fortunately I now had better access to the lesion. At this point I switched to a motorized bur with a small bur tip and resected the tara tumor to the margins, essentially performing a curettage type procedure but with using the bur instead of a curette. Copious saline irrigation was used throughout the resection because the hard tumor generated quite a bit of heat during excision. This took about 20 minutes of careful and slow burring of this tara substance to resect back to the normal femoral bone cortex. Several of the larger tumor fragments were sent as additional specimen. At this point the original plan for a standard length cemented bipolar arthroplasty was no longer adequate because of the medial calcar fracture. I checked to see if instruments or implants would be available for a long stem implant, and none were available the day of surgery to proceed with the arthroplasty. It was felt best and safest for the patient to close at this time, and to complete the arthroplasty portion in a staged fashion tomorrow or when the necessary implants are available. Copious saline irrigation was used. 1 g of vancomycin was placed deep wound closure. The Ethibond sutures were trimmed. The incision was closed in layers. #2 Vicryl was used in a running fashion in the fascia carmen. The subcutaneous tissues were closed with 2-0 Vicryl and shauna. A bulky sterile dressing was applied. Needle and sponge counts were correct. The staged hemiarthroplasty will be performed likely tomorrow. The results were discussed with the patient and the patient's son. The patient was placed into an abduction pillow. STEPHAN LEWIS MD Nov 29, 2019 16:48
== END 2019-11-28 16:28 | DRG 522 ==
LOC: ER 09:09 → ED HOLD 11:15 → 4 NORTH 12:38
PROVIDERS: ADMIT Family Medicine; ATTEND Family Medicine
PROC: 0SRS0JA Replacement of Left Hip Joint, Femoral Surface with Synthetic Substitute, Uncemented, Open Approach (ICD-10-PCS; 2019-11-23)
PROC: 0QB70ZX Excision of Left Upper Femur, Open Approach, Diagnostic (ICD-10-PCS; 2019-11-23)
PROC: 0QU707Z Supplement Left Upper Femur with Autologous Tissue Substitute, Open Approach (ICD-10-PCS; 2019-11-23)
PROC: 0QS706Z Reposition Left Upper Femur with Intramedullary Internal Fixation Device, Open Approach (ICD-10-PCS; principal; 2019-11-23 11:00)
DX: S72.032A Displaced midcervical fracture of left femur, initial encounter for closed fracture (principal); D62 Acute posthemorrhagic anemia; E78.00 Pure hypercholesterolemia, unspecified; I10 Essential (primary) hypertension; I25.10 Atherosclerotic heart disease of native coronary artery without angina pectoris; I25.2 Old myocardial infarction; M54.32 Sciatica, left side; S40.012A Contusion of left shoulder, initial encounter; X58.XXXA Exposure to other specified factors, initial encounter; Y93.89 Activity, other specified; Y92.89 Other specified places as the place of occurrence of the external cause; Y99.8 Other external cause status; Z87.891 Personal history of nicotine dependence; Z96.649 Presence of unspecified artificial hip joint; G89.29 Other chronic pain; D16.22 Benign neoplasm of long bones of left lower limb; Z20.828 Contact with and (suspected) exposure to other viral communicable diseases
CPT/HCPCS: 36415; 71045; 73030; 73080; 73501; 73502; 80048; 80053; 82306; 83036; 83735; 84443; 85007; 85014; 85018; 85025; 85027; 85610; 85730; 86850; 86900; 86901; 86920; 87426; 93005; 96374; 96375; 96376; A7015; C1713; J0171; J0690; J1030; J1100; J2270; J2274; J2370; J2405; J2704; J2710; J2795; J3010; J3260; J3370; J3490; J7030; J7120; P9016; P9045; 97110-GP; 97116-GP; 97530-GO; 97530-GP; 97535-GO; 99285-25; A4461; G0378; U0003-CS